=== PATIENT | female | born 1975 | race Caucasian/White ===

== ENCOUNTER → 2018-05-29 08:19 | Outpatient (CLI) | payer OTHER, SELFPAY ==
[2018-05-29 09:09] LABS: Appearance Urine UA CLEAR; Bilirubin Urine UA NEGATIVE (NEGATIVE); Color Urine UA YELLOW; Glucose Urine UA NEGATIVE (Normal); Ketones Urine UA NEGATIVE (NEGATIVE); Leukocyte Esterase Urine UA NEGATIVE (NEGATIVE); Nitrite Urine UA Negative (Negative); Occult Blood Urine UA 2+ (Negative); Protein Urine UA NEGATIVE (Negative); Specific Gravity Urine UA <=1.005 (1.000-1.035); Urobilinogen Urine UA 0.2 E.U./dL (0.2)
[2018-05-29 09:32] LABS: Bacteria Urine None Seen
[2018-05-29 09:35] LABS: Add Manual Diff / Slide Review NO; Basophils Percent Auto 0.6 % (0-2); Eosinophils Percent Auto 1.4 % (2-4); Hematocrit 41.2 % (36-46); Hemoglobin 14.3 g/dL (12.0-16.0); Lymphocytes Percent Auto 20.6 % (25-40); Mean Corpuscular HGB Conc 34.6 % (30-36); Mean Corpuscular Hemoglobin 30.7 PG (26-34); Mean Corpuscular Volume 88.7 fL (80-100); Monocytes Percent Auto 6.3 % (3-14); Neutrophils Absolute Auto 4800 /uL (3000-5900); Neutrophils Percent Auto 71.1 % (50-75); Platelet Count 257 X10^3/uL (150-400); Red Blood Cell Count 4.64 X10^6/uL (4.0-5.2); Red Cell Distribution Width 12.8 % (11.6-14.8); White Blood Cell Count 6.7 X10^3/uL (4.5-11.0)
[2018-05-29 10:56] LABS: Culture Indicated Urine Cult Not Indicated; RBC Urine 5-10/HPF (0-5/HPF); WBC Urine 5-10/HPF (0-5/HPF)
[2018-05-29 11:27] LABS: HIV 1 and 2 Antibody NEGATIVE (NEGATIVE); Hep C Virus Ab w/Reflex Quant NEGATIVE s/c (NEGATIVE); Hepatitis B Surface Antigen NEGATIVE s/c (NEGATIVE)
[2018-06-02 14:03] LABS: Varicella IgG Antibody < 135.00 Index (< 135.00)
[2018-06-02 14:10] LABS: HSV 2 IGG AB < 0.90 index (< 0.90); HSV1IGG < 0.90 index (< 0.90)
[2018-06-04 15:34] LABS: Rapid Plasma Reagin NON REACTIVE
== END ==
PROVIDERS: Family Provider Family Medicine; PCP Family Medicine; Visit Provider Specialist
DX: Z34.81 Encounter for supervision of other normal pregnancy, first trimester (principal); Z3A.01 Less than 8 weeks gestation of pregnancy
CPT/HCPCS: 36415; 80055; 81003; 81015; 86695; 86696; 86703; 86787; 86803; 86850; 86900; 86901; 87086

== ENCOUNTER → 2018-07-02 14:30 | Outpatient (CLI) | payer OTHER, SELFPAY ==
[2018-07-02 15:23] LABS: Specimen Label NATERA
== END ==
PROVIDERS: PCP Family Medicine; Visit Provider Specialist
DX: O09.529 Supervision of elderly multigravida, unspecified trimester (principal)
CPT/HCPCS: 36415

== ENCOUNTER → 2018-08-13 15:59 | Outpatient (CLI) | payer OTHER, SELFPAY ==
[2018-08-15 14:28] LABS: Alpha Fetoprotein 35.4 ng/mL (< 6.1)
[2018-08-31 09:53] LABS: AFP, Serum 34.6 ng/mL; Calc Gestational Age 18; Est Date Determined by US; Maternal Weight 180 lbs; Number of Fetuses 1; Prev Pregnancies Down Syndrome NOT GIVEN
== END ==
PROVIDERS: Family Provider Family Medicine; PCP Family Medicine; Visit Provider Specialist
DX: Z34.92 Encounter for supervision of normal pregnancy, unspecified, second trimester (principal); R39.9 Unspecified symptoms and signs involving the genitourinary system
CPT/HCPCS: 36415; 82105; 87086

== ENCOUNTER → 2018-09-09 14:15 | Outpatient (CLI) | payer OTHER, SELFPAY | PROVIDERS: Family Provider Family Medicine; PCP Family Medicine; Visit Provider Specialist | DX: R31.9 Hematuria, unspecified (principal) | CPT/HCPCS: 87086 ==

== ENCOUNTER → 2018-10-01 08:20 | Outpatient (CLI) | payer OTHER, SELFPAY ==
[2018-10-01 09:52] LABS: Hematocrit 37.4 % (36-46); Hemoglobin 12.9 g/dL (12.0-16.0)
[2018-10-01 11:12] LABS: GTT (PREG) 1 Hour PP 50gm Dose 139 mg/dL (76-139)
== END ==
PROVIDERS: Family Provider Family Medicine; PCP Family Medicine; Visit Provider Specialist
DX: Z34.92 Encounter for supervision of normal pregnancy, unspecified, second trimester (principal)
CPT/HCPCS: 36415; 82950; 85014; 85018

== ENCOUNTER 2018-11-13 12:30 | Outpatient (RCR) | payer OTHER, SELFPAY ==
--- NOTE | 2018-09-01 15:13 | PT.OIE ---
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) (spontaneous vaginal delivery) (Resolved 06/11/16) Past Surgical History (Last Updated 06/08/18 @ 12:34 by Nadine Schofield) Anesthesia (Resolved) History of third molar tooth extraction (Resolved 1997) Provider Visit Care Team Role Provider Type Alida Davalos DO Family Provider Physician Primary Care Provider Specialty: Family Practice Address: [address] [place] [address] Email: [email or web address] Melissa Henry MD Attending Provider Physician Specialty: INDUSTRIAL GAS SERVICER Address: [address] [place] [id number] Email: [email or web address] Physical Therapy Initial Evaluation PT-OP-A Visit Information Start: 08/31/18 15:46 Freq: Status: Active Protocol: Document 09/01/18 09:01 LRN (Rec: 09/01/18 09:22 [facility] [id number]) Out-Patient Physical Therapy Visit Information Visit Information Visit Type Initial Evaluation Visit Start Time 09:02 Visit Stop Time 09:53 Total Visit Minutes 51 Visit Number 1 Number of DIRECT SUPPORT WORKER Visits 0 Evaluation Information Evaluation Date 09/01/18 PT-OP-B Current Condition Start: 08/31/18 15:46 Freq: Status: Active Protocol: Document 09/01/18 09:01 LRN (Rec: 09/01/18 09:22 LRN [id number]) Current Condition History of Current Condition Onset Date Aug 12, 2018 Current Complaints R Sciatica History of Current Condition Pt is 21 weeks . She states after taking a business trip back east, in which she wore high heels for the first time in awhile, she woke the morning of her return to an onset of R Sciatic pain that was very severe. She states gradually she has gotten better during the 3 weeks she had to wait to get into therapy. She now reports intermittent sharp pain in the low back at the sacral level that radiates intermittently into the R posterior thigh, ending just above the knee. She denies any traumatic injury to her back or LE's. Prior Treatments and Tests No Treatment Goals Patient/Caregiver Goals Wants to be able to function without pain. Walk with friends and play with son at park. Don't want be put on bedrest. Would like to know what exercises she can do and what is safe to do. Prior Functional Status Baseline Function- ADL's Independent Current Functional Impairments (Reported) Functional Limitations- Work/School Sit too long, feels cramping in the area. Functional Limitations- Recreation/ Cut down on walking. Not Hobbies swimming and yoga. 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 PT-OP-C Subjective Start: 08/31/18 15:46 Freq: Status: Active Protocol: Document 09/01/18 09:01 LRN (Rec: 09/01/18 11:11 LRN [id number]) Patient Questionnaires Oswestry Low Back Index Oswestry Score 20 Oswestry Impairment 20 to 39% Impaired (Score 20- 39) OP-PT Pain Assessment Pain Assessment Grid Paper Pain Assessment Grid Completed Yes Location R LE Pain Location Details Posterior thigh, upper lateral hip Intensity 7 Scale Used Numeric (1 - 10) Description Aching Sharp Frequency Intermittent Low Back Pain Location Details Across Low back at sacral level Intensity 4 Scale Used Numeric (1 - 10) Description Aching Sharp Frequency Intermittent Radiating Location R posterior thigh to knee PT-OP-F Manual Assessment Start: 08/31/18 15:46 Freq: Status: Active Protocol: Document 09/01/18 09:01 LRN (Rec: 09/01/18 11:11 LRN [id number]) Manual Assessments Soft Tissue Assessment Soft Tissue Mobility Assessment Symmetrical in low back and hips. L3-L5 R. Paraspinal tightness. PT-OP-H Neuro Start: 08/31/18 15:46 Freq: Status: Active Protocol: Document 09/01/18 09:01 LRN (Rec: 11/20/18 11:11 LRN [id number]) Sensation Evaluation Gross Sensation Gross Sensation WNL Comments Summary Comments Normal Deep Tendon Reflex & Clonus Assessment Deep Tendon Reflex Bilateral Achilles Deep Tendon Reflex 3+ Normal But Brisk Bilateral Patellar Deep Tendon Reflex 3+ Normal But Brisk PT-OP-J Posture/Palpation/Skin Start: 08/31/18 15:46 Freq: Status: Active Protocol: Document 09/01/18 09:01 LRN (Rec: 09/01/18 11:11 LRN [id number]) Posture Evaluation Comments Posture Comments Standing: Mild forward head, R shoulder is low, Mild C- Curve of Thoracic & Upper Lumbar spine with apex on left , Mild dowager hump, increased Lordosis and anterior tilt of pelvis. Umbilicus shifted Right. PT-OP-K Range of Motion Start: 08/31/18 15:46 Freq: Status: Active Protocol: Document 09/01/18 09:01 LRN (Rec: 09/01/18 11:11 LRN [id number]) Lumbar Spine Range of Motion Lumbar Spine Active Degrees Flexion 100 Extension 25 Lateral Flexion Left 14 Lateral Flexion Right 14 Comments WNL, No pain. Hip Goniometric Range of Motion Hip Measured in Degrees Right Passive Internal Rotation 10 External Rotation 35 Left Passive Internal Rotation 25 External Rotation 42 PT-OP-M Strength Start: 08/31/18 15:46 Freq: Status: Active Protocol: Document 09/01/18 09:01 LRN (Rec: 09/01/18 11:11 LRN [id number]) Trunk Strength Trunk Manual Muscle Testing Core Stabilization Pt not able to maintain core stability with MMT of hip flexors; therefore graded 3-/5 . Hip Strength Hip Manual Muscle Testing Right Comments WNL Left Comments WNL PT-OP-Q Treatments Start: 08/31/18 15:46 Freq: Status: Active Protocol: Document 09/01/18 09:01 LRN (Rec: 09/01/18 11:15 LRN [id number]) Therapeutic Exercises Supine Exercises Fig 4 Supine Exercise Name Hip ER Stretch Side right Comments Cuing for pt to gently stretch due to advanced stage. Piriformis Supine Exercise Name Piriformis Stretch Side right Comments Cuing for pt to gently stretch due to advanced stage, supine/sit. Self-Care/Home Management Treatment Education Other Education I/S pt in recommended exer of walking and water ex appropriate for . Discussed pool therapy for instructions on water exercise . Discussed options for exercising with her 2 year old . PT-OP-T Assessment and Plan Start: 08/31/18 15:46 Freq: Status: Active Protocol: Document 09/01/18 09:01 GERARD (Rec: 09/01/18 09:22 LRN [id number]) Physical Therapy Assessment Rehab Potential Rehabilitation Potential Excellent Evaluation Complexity Number of Personal Factors/Comorbidities 1-2 Number of Body Systems Impaired 3 Clinical Presentation at Evaluation Evolving Impairments Impairments Functional Mobility Pain Posture ROM Soft Tissue Mobility Strength Other Concerns Age Related Concerns Effect of injury on work and social life. Barriers to Rehabilitation Currently mother of a 2 year old son & 21 weeks . Goals Pt lacks an aquatic therapy program Residential Goal (LTG) Pt will be safe & independent on an aquatic exercise program . LTG Duration 10/12/18 Two Impairment Intermittent R Sciatic Pain Residential Goal (LTG) Patient will be able to demonstrate proper body mechanics with taking care of & playing with her 2 year old son to prevent onset of R sciatic pain. LTG Duration 09/11/18 One Impairment Lacks self care program Residential Goal (LTG) Pt will be independent with self care ex's. LTG Duration 10/02/18 Assessment Summary Assessment Pt presents today without complaints of pain, but pain that is reproduced with R hip extension and IR ex's. Her R sciatica appears to be elicited due to poor core control with use of LE's, and she demonstrates decreased R hip IR/ER mobility. She has postural changes of increased lordosis and anterior tilt of the pelvis, and a shift of her trunk fascia to the right, that is not seen typically ( typically shift is to the left ). She does have a slight C- curve of her lower thoracic spine that may be contributing to the onset of her R sciatic pain. Overall her LE strength is normal. The pt will benefit from skilled physical therapy for body mechanics and posture training , placement on a HEP of core and L hip ROM/strengthening ex 's and education in an aquatic exercise program for independent exercise as she progresses in her . At this time there is not a need for an SI belt, but as the progresses this may be something that could help manage her Sciatic pain if it continues to persist. Physical Therapy Plan Frequency and Duration Frequency of Treatment 2x/Week Plan of Care Start Date 09/01/18 Plan of Care End Date 10/12/18 Therapeutic Interventions Therapeutic Interventions Aquatic Therapy Home Exercise Program Manual Therapy Neuromuscular Re-education Self-Care/Home Management Soft Tissue Mobilization Taping Therapeutic Exercises Modalities Cold Pack/Ice Massage Other Therapeutic Interventions Possible need of an SI Belt in the future as she progresses in her . Next Visit Focus/Plan Next Note Type Treatment Note Next Visit Plan Body mechanics training; discussion of SI Belt if needed; HEP of R hip ER/IR stretch, L hip strengthening, core stabilization with use of LE's, home management of pain with cryotherapy. Set pt up with aquatic therapy when scheduling permits.
--- NOTE | 2018-09-01 15:13 | PT.OPPOC ---
Current Diagnoses Postural lordosis, lumbar region (09/01/18) Sciatica, right side (09/01/18) 19 weeks gestation of (09/01/18) Provider Visit Care Team Role Provider Type Alida Davalos DO Family Provider Physician Primary Care Provider Specialty: Family Practice Address: [address] [place] [address], [id number] Email: [email or web address] Melissa Henry MD Attending Provider Physician Specialty: PEANUT BLANCHER Address: [address] [place] [address], [id number] Email: [email or web address] Plan Of Care PT-OP-T Assessment and Plan Start: 08/31/18 15:46 Freq: Status: Active Protocol: Document 09/01/18 09:01 LRN (Rec: 09/01/18 09:22 LRN [id number]) Physical Therapy Assessment Rehab Potential Rehabilitation Potential Excellent Evaluation Complexity Number of Personal Factors/Comorbidities 1-2 Number of Body Systems Impaired 3 Clinical Presentation at Evaluation Evolving Impairments Impairments Functional Mobility Pain Posture ROM Soft Tissue Mobility Strength Other Concerns Age Related Concerns Effect of injury on work and social life. Barriers to Rehabilitation Currently mother of a 2 year old son & 21 weeks . Goals Pt lacks an aquatic therapy program Jewel Grinder Goal (LTG) Pt will be safe & independent on an aquatic exercise program . LTG Duration 10/12/18 Two Impairment Intermittent R Sciatic Pain Correction Goal (LTG) Patient will be able to demonstrate proper body mechanics with taking care of & playing with her 2 year old son to prevent onset of R sciatic pain. LTG Duration 09/11/18 One Impairment Lacks self care program Jewel Grinder Goal (LTG) Pt will be independent with self care ex's. LTG Duration 10/02/18 Assessment Summary Assessment Pt presents today without complaints of pain, but pain that is reproduced with R hip extension and IR ex's. Her R sciatica appears to be elicited due to poor core control with use of LE's, and she demonstrates decreased R hip IR/ER mobility. She has postural changes of increased lordosis and anterior tilt of the pelvis, and a shift of her trunk fascia to the right, that is not seen typically ( typically shift is to the left ). She does have a slight C- curve of her lower thoracic spine that may be contributing to the onset of her R sciatic pain. Overall her LE strength is normal. The pt will benefit from skilled physical therapy for body mechanics and posture training , placement on a HEP of core and L hip ROM/strengthening ex 's and education in an aquatic exercise program for independent exercise as she progresses in her . At this time there is not a need for an SI belt, but as the progresses this may be something that could help manage her Sciatic pain if it continues to persist. Physical Therapy Plan Frequency and Duration Frequency of Treatment 2x/Week Plan of Care Start Date 09/01/18 Plan of Care End Date 10/12/18 Therapeutic Interventions Therapeutic Interventions Aquatic Therapy Home Exercise Program Manual Therapy Neuromuscular Re-education Self-Care/Home Management Soft Tissue Mobilization Taping Therapeutic Exercises Modalities Cold Pack/Ice Massage Other Therapeutic Interventions Possible need of an SI Belt in the future as she progresses in her . Next Visit Focus/Plan Next Note Type Treatment Note Next Visit Plan Body mechanics training; discussion of SI Belt if needed; HEP of R hip ER/IR stretch, L hip strengthening, core stabilization with use of LE's, home management of pain with cryotherapy. Set pt up with aquatic therapy when scheduling permits. Plan of Care Dates Plan of Care Start Date 09/01/18 Plan of Care End Date 10/12/18 Please Sign and Return: I have reviewed this Plan of Care and certify that the skilled therapy services above are required to meet the patient?s needs. Physician Signature Date Printed Name and Credentials Clinical Instructor Signature Printed Name and Credentials
--- NOTE | 2018-09-11 17:11 | PT.OTN ---
Current Diagnoses Sciatica, right side (09/11/18) 19 weeks gestation of (09/11/18) Physical Therapy Treatment Note PT-OP-A Visit Information Start: 08/31/18 15:46 Freq: Status: Active Protocol: Document 09/11/18 12:30 SAK (Rec: 09/11/18 17:10 SAK [id number]) Out-Patient Physical Therapy Visit Information Visit Information Visit Type Aquatic Treatment Note Visit Start Time 12:30 Visit Stop Time 13:15 Total Visit Minutes 45 Visit Number 2 Number of CONTROL ENGINEER Visits 0 PT-OP-B Current Condition Start: 08/31/18 15:46 Freq: Status: Active Protocol: Document 09/01/18 09:01 LRN (Rec: 09/01/18 09:22 LRN [id number]) Current Condition History of Current Condition Onset Date Aug 12, 2018 Current Complaints R Sciatica History of Current Condition Pt is 21 weeks . She states after taking a business trip back east, in which she wore high heels for the first time in awhile, she woke the morning of her return to an onset of R Sciatic pain that was very severe. She states gradually she has gotten better during the 3 weeks she had to wait to get into therapy. She now reports intermittent sharp pain in the low back at the sacral level that radiates intermittently into the R posterior thigh, ending just above the knee. She denies any traumatic injury to her back or LE's. Prior Treatments and Tests No Treatment Goals Patient/Caregiver Goals Wants to be able to function without pain. Walk with friends and play with son at park. Don't want be put on bedrest. Would like to know what exercises she can do and what is safe to do. Prior Functional Status Baseline Function- ADL's Independent Current Functional Impairments (Reported) Functional Limitations- Work/School Sit too long, feels cramping in the area. Functional Limitations- Recreation/ Cut down on walking. Not Hobbies swimming and yoga. 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 PT-OP-F Manual Assessment Start: 08/31/18 15:46 Freq: Status: Active Protocol: Document 09/01/18 09:01 LRN (Rec: 09/01/18 11:11 LRN [id number]) Manual Assessments Soft Tissue Assessment Soft Tissue Mobility Assessment Symmetrical in low back and hips. L3-L5 R. Paraspinal tightness. PT-OP-H Neuro Start: 08/31/18 15:46 Freq: Status: Active Protocol: Document 09/01/18 09:01 LRN (Rec: 09/01/18 11:11 LRN [id number]) Sensation Evaluation Gross Sensation Gross Sensation WNL Comments Summary Comments Normal Deep Tendon Reflex & Clonus Assessment Deep Tendon Reflex Bilateral Achilles Deep Tendon Reflex 3+ Normal But Brisk Bilateral Patellar Deep Tendon Reflex 3+ Normal But Brisk PT-OP-J Posture/Palpation/Skin Start: 08/31/18 15:46 Freq: Status: Active Protocol: Document 09/01/18 09:01 LRN (Rec: 09/01/18 11:11 LRN [id number]) Posture Evaluation Comments Posture Comments Standing: Mild forward head, R shoulder is low, Mild C- Curve of Thoracic & Upper Lumbar spine with apex on left , Mild dowager hump, increased Lordosis and anterior tilt of pelvis. Umbilicus shifted Right. PT-OP-K Range of Motion Start: 08/31/18 15:46 Freq: Status: Active Protocol: Document 09/01/18 09:01 LRN (Rec: 09/01/18 11:11 LRN [id number]) Lumbar Spine Range of Motion Lumbar Spine Active Degrees Flexion 100 Extension 25 Lateral Flexion Left 14 Lateral Flexion Right 14 Comments WNL, No pain. Hip Goniometric Range of Motion Hip Measured in Degrees Right Passive Internal Rotation 10 External Rotation 35 Left Passive Internal Rotation 25 External Rotation 42 PT-OP-M Strength Start: 08/31/18 15:46 Freq: Status: Active Protocol: Document 09/01/18 09:01 LRN (Rec: 09/01/18 11:11 LRN [id number]) Trunk Strength Trunk Manual Muscle Testing Core Stabilization Pt not able to maintain core stability with MMT of hip flexors; therefore graded 3-/5 . Hip Strength Hip Manual Muscle Testing Right Comments WNL Left Comments WNL PT-OP-Q Treatments Start: 08/31/18 15:46 Freq: Status: Active Protocol: Document 09/01/18 09:01 LRN (Rec: 09/01/18 11:15 LRN [id number]) Therapeutic Exercises Supine Exercises Fig 4 Supine Exercise Name Hip ER Stretch Side right Comments Cuing for pt to gently stretch due to advanced stage. Piriformis Supine Exercise Name Piriformis Stretch Side right Comments Cuing for pt to gently stretch due to advanced stage, supine/sit. Self-Care/Home Management Treatment Education Other Education I/S pt in recommended exer of walking and water ex appropriate for . Discussed pool therapy for instructions on water exercise . Discussed options for exercising with her 2 year old . PT-OP-S Aquatic Treatment Start: 08/31/18 15:46 Freq: Status: Active Protocol: Document 09/11/18 12:30 SAK (Rec: 09/11/18 17:10 SAK [id number]) Aquatics Treatment Pool Entry/Exit Pool Entry/Exit Method Stairs Assistance Standby Assistance Water Walking fwd,bck,side, december, december Water Level Chest Level Comments verbal and manual cues for postural alignment and core stab Lower Extremity Exercises Leg circles Body Position Standing Water Level Chest Level Reps/Duration 10x ea CC, CCW Lower Extremity Stretches DKTC, SKTC Water Level [place] Equipment pool wall Reps/Duration 2x ea Comments with deep breathing Upper Extremity Exercises shld flex/ext Body Position Standing Water Level Chest Level Reps/Duration 10 edy, 10 unil Comments emphasis on core stab sh hor ab/ad Body Position Standing Water Level Chest Level Reps/Duration 10 edy, 10 unil Comments emphasis on core stab [place] Activities [place] Activities Bicycle Bicycle Backwards Cross Country Running Other Activities Deep water DLS with small barbells Comments cues for postural alignment and core stab PT-OP-T Assessment and Plan Start: 08/31/18 15:46 Freq: Status: Active Protocol: Document 09/11/18 12:30 SAK (Rec: 09/11/18 17:10 SAK [id number]) Physical Therapy Assessment Goals Pt lacks an aquatic therapy program Mcc Goal (LTG) Pt will be safe & independent on an aquatic exercise program . LTG Duration 10/12/18 Two Impairment Intermittent R Sciatic Pain Shot Peen Operator Goal (LTG) Patient will be able to demonstrate proper body mechanics with taking care of & playing with her 2 year old son to prevent onset of R sciatic pain. LTG Duration 09/11/18 One Impairment Lacks self care program Shot Peen Operator Goal (LTG) Pt will be independent with self care ex's. LTG Duration 10/02/18 Assessment Summary Assessment Demonstrated good understanding of aquatic exercises, needed mod cues for postural alignment and core stab with all. Reported decreased pain in water and no increased pain with aquatic exercises. Feel she will benefit highly from aquatic PT . Physical Therapy Plan Frequency and Duration Frequency of Treatment 2x/Week Plan of Care Start Date 09/01/18 Plan of Care End Date 10/12/18 Therapeutic Interventions Therapeutic Interventions Aquatic Therapy Home Exercise Program Manual Therapy Neuromuscular Re-education Self-Care/Home Management Soft Tissue Mobilization Taping Therapeutic Exercises Modalities Cold Pack/Ice Massage Other Therapeutic Interventions Possible need of an SI Belt in the future as she progresses in her . Next Visit Focus/Plan Next Note Type Treatment Note Next Visit Plan Body mechanics training; discussion of SI Belt if needed; HEP of R hip ER/IR stretch, L hip strengthening, core stabilization with use of LE's, home management of pain with cryotherapy. Progress aquatic therapy as tolerated next session.
--- NOTE | 2018-09-18 17:20 | PT.OTN ---
Current Diagnoses Sciatica, right side (09/18/18) 19 weeks gestation of (09/18/18) Physical Therapy Treatment Note PT-OP-A Visit Information Start: 08/31/18 15:46 Freq: Status: Active Protocol: Document 09/18/18 17:12 SAK (Rec: 09/18/18 17:20 [facility] [id number]) Out-Patient Physical Therapy Visit Information Visit Information Visit Type Aquatic Treatment Note Visit Start Time 12:30 Visit Stop Time 13:15 Total Visit Minutes 45 Visit Number 3 Number of RADIUS GRINDER Visits 0 PT-OP-B Current Condition Start: 08/31/18 15:46 Freq: Status: Active Protocol: Document 09/01/18 09:01 LRN (Rec: 09/01/18 09:22 LRN [id number]) Current Condition History of Current Condition Onset Date Aug 12, 2018 Current Complaints R Sciatica History of Current Condition Pt is 21 weeks . She states after taking a business trip back east, in which she wore high heels for the first time in awhile, she woke the morning of her return to an onset of R Sciatic pain that was very severe. She states gradually she has gotten better during the 3 weeks she had to wait to get into therapy. She now reports intermittent sharp pain in the low back at the sacral level that radiates intermittently into the R posterior thigh, ending just above the knee. She denies any traumatic injury to her back or LE's. Prior Treatments and Tests No Treatment Goals Patient/Caregiver Goals Wants to be able to function without pain. Walk with friends and play with son at park. Don't want be put on bedrest. Would like to know what exercises she can do and what is safe to do. Prior Functional Status Baseline Function- ADL's Independent Current Functional Impairments (Reported) Functional Limitations- Work/School Sit too long, feels cramping in the area. Functional Limitations- Recreation/ Cut down on walking. Not Hobbies swimming and yoga. 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 PT-OP-C Subjective Start: 08/31/18 15:46 Freq: Status: Active Protocol: Document 09/18/18 17:12 [facility] (Rec: 09/18/18 17:20 SAK [id number]) OP-PT Subjective Patient Comments Patient Comments Patient reports she has come to the pool 1x since last seen . [place] good after first aquatic therapy session; states less sciatic pain. Had to bring her son to PT session today. PT-OP-F Manual Assessment Start: 08/31/18 15:46 Freq: Status: Active Protocol: Document 09/01/18 09:01 LRN (Rec: 09/01/18 11:11 LRN [id number]) Manual Assessments Soft Tissue Assessment Soft Tissue Mobility Assessment Symmetrical in low back and hips. L3-L5 R. Paraspinal tightness. PT-OP-H Neuro Start: 08/31/18 15:46 Freq: Status: Active Protocol: Document 09/01/18 09:01 LRN (Rec: 09/01/18 11:11 LRN [id number]) Sensation Evaluation Gross Sensation Gross Sensation WNL Comments Summary Comments Normal Deep Tendon Reflex & Clonus Assessment Deep Tendon Reflex Bilateral Achilles Deep Tendon Reflex 3+ Normal But Brisk Bilateral Patellar Deep Tendon Reflex 3+ Normal But Brisk PT-OP-J Posture/Palpation/Skin Start: 08/31/18 15:46 Freq: Status: Active Protocol: Document 09/01/18 09:01 LRN (Rec: 09/01/18 11:11 LRN [id number]) Posture Evaluation Comments Posture Comments Standing: Mild forward head, R shoulder is low, Mild C- Curve of Thoracic & Upper Lumbar spine with apex on left , Mild dowager hump, increased Lordosis and anterior tilt of pelvis. Umbilicus shifted Right. PT-OP-K Range of Motion Start: 08/31/18 15:46 Freq: Status: Active Protocol: Document 09/01/18 09:01 LRN (Rec: 09/01/18 11:11 LRN [id number]) Lumbar Spine Range of Motion Lumbar Spine Active Degrees Flexion 100 Extension 25 Lateral Flexion Left 14 Lateral Flexion Right 14 Comments WNL, No pain. Hip Goniometric Range of Motion Hip Measured in Degrees Right Passive Internal Rotation 10 External Rotation 35 Left Passive Internal Rotation 25 External Rotation 42 PT-OP-M Strength Start: 08/31/18 15:46 Freq: Status: Active Protocol: Document 09/01/18 09:01 LRN (Rec: 09/01/18 11:11 LRN [id number]) Trunk Strength Trunk Manual Muscle Testing Core Stabilization Pt not able to maintain core stability with MMT of hip flexors; therefore graded 3-/5 . Hip Strength Hip Manual Muscle Testing Right Comments WNL Left Comments WNL PT-OP-Q Treatments Start: 08/31/18 15:46 Freq: Status: Active Protocol: Document 09/01/18 09:01 LRN (Rec: 09/01/18 11:15 LRN [id number]) Therapeutic Exercises Supine Exercises Fig 4 Supine Exercise Name Hip ER Stretch Side right Comments Cuing for pt to gently stretch due to advanced stage. Piriformis Supine Exercise Name Piriformis Stretch Side right Comments Cuing for pt to gently stretch due to advanced stage, supine/sit. Self-Care/Home Management Treatment Education Other Education I/S pt in recommended exer of walking and water ex appropriate for . Discussed pool therapy for instructions on water exercise . Discussed options for exercising with her 2 year old . PT-OP-S Aquatic Treatment Start: 08/31/18 15:46 Freq: Status: Active Protocol: Document 09/18/18 17:12 SAK (Rec: 09/18/18 17:20 SAK [id number]) Aquatics Treatment Pool Entry/Exit Pool Entry/Exit Method Stairs Assistance Standby Assistance Water Walking fwd,bck,side, december, soldier december Water Level Chest Level Comments verbal and manual cues for postural alignment and core stab; carrying son Lower Extremity Exercises squats Reps/Duration 10x3 Comments cues for postural alignment, core stab; with and without son hip flex/ext Body Position Standing Water Level Chest Level Reps/Duration 10x Leg circles Body Position Standing Water Level Chest Level Reps/Duration 10x ea CC, CCW Lower Extremity Stretches IT band Body Position Standing Water Level Chest Level Equipment Small Noodle Reps/Duration 2x HS Body Position Standing Water Level Chest Level Equipment Small Noodle Reps/Duration 2x DKTC, SKTC Details SKTC only Water Level Chest Level Reps/Duration 2x ea Comments with deep breathing Upper Extremity Exercises shld flex/ext Body Position Standing Water Level Chest Level Reps/Duration 10 edy, 10 unil Comments emphasis on core stab sh hor ab/ad Body Position Standing Water Level Chest Level Reps/Duration 10 edy, 10 unil Comments emphasis on core stab [place] Activities [place] Activities Bicycle Comments cues for postural alignment and core stab. PT-OP-T Assessment and Plan Start: 08/31/18 15:46 Freq: Status: Active Protocol: Document 09/18/18 12:30 [facility] (Rec: 09/18/18 17:20 [facility] [id number]) Physical Therapy Assessment Goals Pt lacks an aquatic therapy program Air Conditioning Equipment Mechanic Goal (LTG) Pt will be safe & independent on an aquatic exercise program . LTG Duration 10/12/18 Two Impairment Intermittent R Sciatic Pain [facility] Goal (LTG) Patient will be able to demonstrate proper body mechanics with taking care of & playing with her 2 year old son to prevent onset of R sciatic pain. LTG Duration 09/11/18 One Impairment Lacks self care program [facility] Goal (LTG) Pt will be independent with self care ex's. LTG Duration 10/02/18 Assessment Summary Assessment Patient education throughout PT session today with emphasis on postural alignment and core stab while holding, moving, playing with son during session; patient demonstrated good understanding. Patient reported HS stretch in water felt very helpful. Physical Therapy Plan Frequency and Duration Frequency of Treatment 2x/Week Duration of Treatment 6 wks Plan of Care Start Date 09/01/18 Plan of Care End Date 10/12/18 Therapeutic Interventions Therapeutic Interventions Aquatic Therapy Home Exercise Program Manual Therapy Neuromuscular Re-education Self-Care/Home Management Soft Tissue Mobilization Taping Therapeutic Exercises Modalities Cold Pack/Ice Massage Other Therapeutic Interventions Possible need of an SI Belt in the future as she progresses in her . Next Visit Focus/Plan Next Note Type Treatment Note Next Visit Plan Continue to progress aquatic therapy as tolerated emphasis on postural alignment and core stabilization, gentle flexibility.
--- NOTE | 2018-09-25 15:11 | PT.OTN ---
Current Diagnoses Sciatica, right side (09/25/18) 19 weeks gestation of (09/25/18) Physical Therapy Treatment Note PT-OP-A Visit Information Start: 08/31/18 15:46 Freq: Status: Active Protocol: Document 09/25/18 12:30 LJ (Rec: 09/25/18 15:11 LJ [id number]) Out-Patient Physical Therapy Visit Information Visit Information Visit Type Aquatic Treatment Note Visit Start Time 12:30 Visit Stop Time 13:15 Total Visit Minutes 45 Visit Number 4 Number of WEB ANALYST Visits 1 PT-OP-B Current Condition Start: 08/31/18 15:46 Freq: Status: Active Protocol: Document 09/01/18 09:01 LRN (Rec: 09/01/18 09:22 LRN [id number]) Current Condition History of Current Condition Onset Date Aug 12, 2018 Current Complaints R Sciatica History of Current Condition Pt is 21 weeks . She states after taking a business trip back east, in which she wore high heels for the first time in awhile, she woke the morning of her return to an onset of R Sciatic pain that was very severe. She states gradually she has gotten better during the 3 weeks she had to wait to get into therapy. She now reports intermittent sharp pain in the low back at the sacral level that radiates intermittently into the R posterior thigh, ending just above the knee. She denies any traumatic injury to her back or LE's. Prior Treatments and Tests No Treatment Goals Patient/Caregiver Goals Wants to be able to function without pain. Walk with friends and play with son at park. Don't want be put on bedrest. Would like to know what exercises she can do and what is safe to do. Prior Functional Status Baseline Function- ADL's Independent Current Functional Impairments (Reported) Functional Limitations- Work/School Sit too long, feels cramping in the area. Functional Limitations- Recreation/ Cut down on walking. Not Hobbies swimming and yoga. 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 PT-OP-C Subjective Start: 08/31/18 15:46 Freq: Status: Active Protocol: Document 09/25/18 12:30 LJ (Rec: 09/25/18 15:11 LJ [id number]) OP-PT Subjective Patient Comments Patient Comments Pt reports sciatic episode resolved itself and is no longer painful. States pain is improving. Concerned that baby is dropping too soon in . PT-OP-F Manual Assessment Start: 08/31/18 15:46 Freq: Status: Active Protocol: Document 09/01/18 09:01 LRN (Rec: 09/01/18 11:11 LRN [id number]) Manual Assessments Soft Tissue Assessment Soft Tissue Mobility Assessment Symmetrical in low back and hips. L3-L5 R. Paraspinal tightness. PT-OP-H Neuro Start: 08/31/18 15:46 Freq: Status: Active Protocol: Document 09/01/18 09:01 LRN (Rec: 09/01/18 11:11 LRN [id number]) Sensation Evaluation Gross Sensation Gross Sensation WNL Comments Summary Comments Normal Deep Tendon Reflex & Clonus Assessment Deep Tendon Reflex Bilateral Achilles Deep Tendon Reflex 3+ Normal But Brisk Bilateral Patellar Deep Tendon Reflex 3+ Normal But Brisk PT-OP-J Posture/Palpation/Skin Start: 08/31/18 15:46 Freq: Status: Active Protocol: Document 09/01/18 09:01 LRN (Rec: 09/01/18 11:11 LRN [id number]) Posture Evaluation Comments Posture Comments Standing: Mild forward head, R shoulder is low, Mild C- Curve of Thoracic & Upper Lumbar spine with apex on left , Mild dowager hump, increased Lordosis and anterior tilt of pelvis. Umbilicus shifted Right. PT-OP-K Range of Motion Start: 08/31/18 15:46 Freq: Status: Active Protocol: Document 09/01/18 09:01 LRN (Rec: 09/01/18 11:11 LRN [id number]) Lumbar Spine Range of Motion Lumbar Spine Active Degrees Flexion 100 Extension 25 Lateral Flexion Left 14 Lateral Flexion Right 14 Comments WNL, No pain. Hip Goniometric Range of Motion Hip Measured in Degrees Right Passive Internal Rotation 10 External Rotation 35 Left Passive Internal Rotation 25 External Rotation 42 PT-OP-M Strength Start: 08/31/18 15:46 Freq: Status: Active Protocol: Document 09/01/18 09:01 LRN (Rec: 09/01/18 11:11 LRN [id number]) Trunk Strength Trunk Manual Muscle Testing Core Stabilization Pt not able to maintain core stability with MMT of hip flexors; therefore graded 3-/5 . Hip Strength Hip Manual Muscle Testing Right Comments WNL Left Comments WNL PT-OP-Q Treatments Start: 08/31/18 15:46 Freq: Status: Active Protocol: Document 09/01/18 09:01 LRN (Rec: 09/01/18 11:15 LRN [id number]) Therapeutic Exercises Supine Exercises Fig 4 Supine Exercise Name Hip ER Stretch Side right Comments Cuing for pt to gently stretch due to advanced stage. Piriformis Supine Exercise Name Piriformis Stretch Side right Comments Cuing for pt to gently stretch due to advanced stage, supine/sit. Self-Care/Home Management Treatment Education Other Education I/S pt in recommended exer of walking and water ex appropriate for . Discussed pool therapy for instructions on water exercise . Discussed options for exercising with her 2 year old . PT-OP-S Aquatic Treatment Start: 08/31/18 15:46 Freq: Status: Active Protocol: Document 09/25/18 12:30 LJ (Rec: 09/25/18 15:11 LJ [id number]) Aquatics Treatment Pool Entry/Exit Pool Entry/Exit Method Stairs Assistance Standby Assistance Water Walking fwd,bck,side, december, december Water Level Chest Level Comments verbal and manual cues for postural alignment and core stab; carrying son Lower Extremity Exercises squats Reps/Duration 10x3 Comments cues for postural alignment, core stab; with and without son; on 6 box hip flex/ext Body Position Standing Water Level Chest Level Reps/Duration 10x Lower Extremity Stretches IT band Body Position Standing Water Level Chest Level Equipment Small Noodle Reps/Duration 2x HS Body Position Standing Water Level Chest Level Equipment Small Noodle Reps/Duration 2x Upper Extremity Exercises shld flex/ext Body Position Standing Water Level Chest Level Reps/Duration 10 edy, 10 unil Comments during squat on box; emphasis on core stab sh hor ab/ad Body Position Standing Water Level Chest Level Reps/Duration 10 edy, 10 unil Comments during aquat on box; emphasis on core stab Upper Extremity Stretches fwd walking holding noodle behind bck Reps/Duration 4 laps Spinal Exercises core stab in walking forward and backwrd Reps/Duration 4 laps Comments tactile cueing Balance backward walk tandem Reps/Duration 2 laps [place] Activities [place] Activities Bicycle Bicycle Backwards [place] Running Other Activities pendulum supine lumbar twist for dymamic stretching Comments cues for postural alignment and core stab. PT-OP-T Assessment and Plan Start: 08/31/18 15:46 Freq: Status: Active Protocol: Document 09/25/18 12:30 LJ (Rec: 09/25/18 15:11 LJ [id number]) Physical Therapy Assessment Rehab Potential Rehabilitation Potential Excellent Evaluation Complexity Number of Personal Factors/Comorbidities 1-2 Number of Body Systems Impaired 3 Clinical Presentation at Evaluation Evolving Impairments Impairments Functional Mobility Pain Posture ROM Soft Tissue Mobility Strength Other Concerns Age Related Concerns Effect of injury on work and social life. Barriers to Rehabilitation Currently mother of a 2 year old son & 21 weeks . Goals Pt lacks an aquatic therapy program Fiber Worker Goal (LTG) Pt will be safe & independent on an aquatic exercise program . LTG Duration 10/12/18 Two Impairment Intermittent R Sciatic Pain Fiber Worker Goal (LTG) Patient will be able to demonstrate proper body mechanics with taking care of & playing with her 2 year old son to prevent onset of R sciatic pain. LTG Duration 09/11/18 One Impairment Lacks self care program Fiber Worker Goal (LTG) Pt will be independent with self care ex's. LTG Duration 10/02/18 Assessment Summary Assessment Pt demonstrates good posture and understanding of all exercises. Tolerated session well. Demonstrated good balance in backward walking w/ NBOS. Physical Therapy Plan Frequency and Duration Frequency of Treatment 2x/Week Duration of Treatment 6 wks Plan of Care Start Date 09/01/18 Plan of Care End Date 10/12/18 Therapeutic Interventions Therapeutic Interventions Aquatic Therapy Home Exercise Program Manual Therapy Neuromuscular Re-education Self-Care/Home Management Soft Tissue Mobilization Taping Therapeutic Exercises Modalities Cold Pack/Ice Massage Other Therapeutic Interventions Possible need of an SI Belt in the future as she progresses in her . Next Visit Focus/Plan Next Visit Plan Continue to progress aquatic therapy as tolerated emphasis on postural alignment and core stabilization, gentle flexibility. Increase resistance and intensity as tolerated.
--- NOTE | 2018-10-09 15:20 | PT.OTN ---
Current Diagnoses Sciatica, right side (10/09/18) 19 weeks gestation of (10/09/18) Physical Therapy Treatment Note PT-OP-A Visit Information Start: 08/31/18 15:46 Freq: Status: Active Protocol: Document 10/09/18 11:00 LJ (Rec: 10/09/18 15:19 LJ [email or web address]) Out-Patient Physical Therapy Visit Information Visit Information Visit Type Aquatic Treatment Note Visit Start Time 11:00 Visit Stop Time 11:45 Total Visit Minutes 45 Visit Number 5 Number of CAKE FORMER Visits 2 PT-OP-B Current Condition Start: 08/31/18 15:46 Freq: Status: Active Protocol: Document 09/01/18 09:01 LRN (Rec: 09/01/18 09:22 LRN [id number]) Current Condition History of Current Condition Onset Date Aug 12, 2018 Current Complaints R Sciatica History of Current Condition Pt is 21 weeks . She states after taking a business trip back east, in which she wore high heels for the first time in awhile, she woke the morning of her return to an onset of R Sciatic pain that was very severe. She states gradually she has gotten better during the 3 weeks she had to wait to get into therapy. She now reports intermittent sharp pain in the low back at the sacral level that radiates intermittently into the R posterior thigh, ending just above the knee. She denies any traumatic injury to her back or LE's. Prior Treatments and Tests No Treatment Goals Patient/Caregiver Goals Wants to be able to function without pain. Walk with friends and play with son at park. Don't want be put on bedrest. Would like to know what exercises she can do and what is safe to do. Prior Functional Status Baseline Function- ADL's Independent Current Functional Impairments (Reported) Functional Limitations- Work/School Sit too long, feels cramping in the area. Functional Limitations- Recreation/ Cut down on walking. Not Hobbies swimming and yoga. 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 PT-OP-C Subjective Start: 08/31/18 15:46 Freq: Status: Active Protocol: Document 10/09/18 11:00 LJ (Rec: 10/09/18 15:19 LJ [email or web address]) OP-PT Subjective Patient Comments Patient Comments Pt reports pain is negligable. Occasionally flares up when carrying son for extended periods of time PT-OP-F Manual Assessment Start: 08/31/18 15:46 Freq: Status: Active Protocol: Document 09/01/18 09:01 LRN (Rec: 09/01/18 11:11 LRN [id number]) Manual Assessments Soft Tissue Assessment Soft Tissue Mobility Assessment Symmetrical in low back and hips. L3-L5 R. Paraspinal tightness. PT-OP-H Neuro Start: 08/31/18 15:46 Freq: Status: Active Protocol: Document 09/01/18 09:01 LRN (Rec: 09/01/18 11:11 LRN [id number]) Sensation Evaluation Gross Sensation Gross Sensation WNL Comments Summary Comments Normal Deep Tendon Reflex & Clonus Assessment Deep Tendon Reflex Bilateral Achilles Deep Tendon Reflex 3+ Normal But Brisk Bilateral Patellar Deep Tendon Reflex 3+ Normal But Brisk PT-OP-J Posture/Palpation/Skin Start: 08/31/18 15:46 Freq: Status: Active Protocol: Document 09/01/18 09:01 LRN (Rec: 09/01/18 11:11 LRN [id number]) Posture Evaluation Comments Posture Comments Standing: Mild forward head, R shoulder is low, Mild C- Curve of Thoracic & Upper Lumbar spine with apex on left , Mild dowager hump, increased Lordosis and anterior tilt of pelvis. Umbilicus shifted Right. PT-OP-K Range of Motion Start: 08/31/18 15:46 Freq: Status: Active Protocol: Document 09/01/18 09:01 LRN (Rec: 09/01/18 11:11 LRN [id number]) Lumbar Spine Range of Motion Lumbar Spine Active Degrees Flexion 100 Extension 25 Lateral Flexion Left 14 Lateral Flexion Right 14 Comments WNL, No pain. Hip Goniometric Range of Motion Hip Measured in Degrees Right Passive Internal Rotation 10 External Rotation 35 Left Passive Internal Rotation 25 External Rotation 42 PT-OP-M Strength Start: 08/31/18 15:46 Freq: Status: Active Protocol: Document 09/01/18 09:01 LRN (Rec: 09/01/18 11:11 LRN [id number]) Trunk Strength Trunk Manual Muscle Testing Core Stabilization Pt not able to maintain core stability with MMT of hip flexors; therefore graded 3-/5 . Hip Strength Hip Manual Muscle Testing Right Comments WNL Left Comments WNL PT-OP-Q Treatments Start: 08/31/18 15:46 Freq: Status: Active Protocol: Document 09/01/18 09:01 LRN (Rec: 09/01/18 11:15 LRN [id number]) Therapeutic Exercises Supine Exercises Fig 4 Supine Exercise Name Hip ER Stretch Side right Comments Cuing for pt to gently stretch due to advanced stage. Piriformis Supine Exercise Name Piriformis Stretch Side right Comments Cuing for pt to gently stretch due to advanced stage, supine/sit. Self-Care/Home Management Treatment Education Other Education I/S pt in recommended exer of walking and water ex appropriate for . Discussed pool therapy for instructions on water exercise . Discussed options for exercising with her 2 year old . PT-OP-S Aquatic Treatment Start: 08/31/18 15:46 Freq: Status: Active Protocol: Document 10/09/18 11:00 LJ (Rec: 10/09/18 15:19 LJ [email or web address]) Aquatics Treatment Pool Entry/Exit Pool Entry/Exit Method Stairs Assistance Standby Assistance Water Walking fwd,bck,side, december, december Water Level Chest Level Comments verbal and manual cues for postural alignment and core stab; carrying son Lower Extremity Exercises squats Reps/Duration 10x3 Comments cues for postural alignment, core stab; with and without son; on 6 box hip flex/ext Body Position Standing Water Level Chest Level Reps/Duration 10x Leg circles Body Position Standing Water Level Chest Level Reps/Duration 10x ea CC, CCW Lower Extremity Stretches IT band Body Position Standing Water Level Chest Level Equipment Small Noodle Reps/Duration 2x HS Body Position Standing Reps/Duration 2x Comments on wall DKTC, SKTC Water Level Chest Level Reps/Duration 2x ea Comments with deep breathing Upper Extremity Exercises shld flex/ext Body Position Standing Water Level Chest Level Reps/Duration 10 edy, 10 unil Comments during squat on box; emphasis on core stab sh hor ab/ad Body Position Standing Water Level Chest Level Reps/Duration 10 edy, 10 unil Comments during aquat on box; emphasis on core stab Upper Extremity Stretches fwd walking holding noodle behind bck Reps/Duration 2 laps Spinal Exercises core stab in walking forward and backwrd Reps/Duration 4 laps Comments tactile cueing Balance backward walk tandem Reps/Duration 2 laps [place] Activities [place] Activities Bicycle Bicycle Backwards Cross Country Running Other Activities pendulum -supine lumbar twist for - dymamic stretching -30/15 intervals x 4 min Comments cues for postural alignment and core stab. PT-OP-T Assessment and Plan Start: 08/31/18 15:46 Freq: Status: Active Protocol: Document 10/09/18 11:00 [email or web address] (Rec: 10/09/18 15:19 [email or web address]) Physical Therapy Assessment Rehab Potential Rehabilitation Potential Excellent Evaluation Complexity Number of Personal Factors/Comorbidities 1-2 Number of Body Systems Impaired 3 Clinical Presentation at Evaluation Evolving Impairments Impairments Functional Mobility Pain Posture ROM Soft Tissue Mobility Strength Other Concerns Age Related Concerns Effect of injury on work and social life. Barriers to Rehabilitation Currently mother of a 2 year old son & 21 weeks . Goals Pt lacks an aquatic therapy program Mine Inspector Goal (LTG) Pt will be safe & independent on an aquatic exercise program . LTG Duration 10/12/18 Two Impairment Intermittent R Sciatic Pain Fdc Goal (LTG) Patient will be able to demonstrate proper body mechanics with taking care of & playing with her 2 year old son to prevent onset of R sciatic pain. LTG Duration 09/11/18 One Impairment Lacks self care program Mine Inspector Goal (LTG) Pt will be independent with self care ex's. LTG Duration 10/02/18 Assessment Summary Assessment Pt demonstrates good posture and understanding of all exercises. Tolerated session well. Demonstrated good balance in backwrd walking w/ NBOS. Physical Therapy Plan Frequency and Duration Frequency of Treatment 2x/Week Duration of Treatment 6 wks Plan of Care Start Date 09/01/18 Plan of Care End Date 10/12/18 Therapeutic Interventions Therapeutic Interventions Aquatic Therapy Home Exercise Program Manual Therapy Neuromuscular Re-education Self-Care/Home Management Soft Tissue Mobilization Taping Therapeutic Exercises Modalities Cold Pack/Ice Massage Other Therapeutic Interventions Possible need of an SI Belt in the future as she progresses in her . Next Visit Focus/Plan Next Visit Plan Continue to progress aquatic therapy as tolerated emphasis on postural alignment and core stabilization, gentle flexibility. Increase resistance and intensity as tolerated.
--- NOTE | 2018-10-16 14:40 | PT.OTN ---
Current Diagnoses Sciatica, right side (10/09/18) 19 weeks gestation of (10/09/18) Physical Therapy Treatment Note PT-OP-A Visit Information Start: 08/31/18 15:46 Freq: Status: Active Protocol: Document 10/16/18 11:45 LJ (Rec: 10/16/18 14:40 LJ [email or web address]) Out-Patient Physical Therapy Visit Information Visit Information Visit Type Aquatic Treatment Note Visit Start Time 11:45 Visit Stop Time 12:30 Total Visit Minutes 45 Visit Number 6 Number of JOINT SUPERVISOR Visits 3 PT-OP-B Current Condition Start: 08/31/18 15:46 Freq: Status: Active Protocol: Document 09/01/18 09:01 LRN (Rec: 09/01/18 09:22 LRN [id number]) Current Condition History of Current Condition Onset Date Aug 12, 2018 Current Complaints R Sciatica History of Current Condition Pt is 21 weeks . She states after taking a business trip back east, in which she wore high heels for the first time in awhile, she woke the morning of her return to an onset of R Sciatic pain that was very severe. She states gradually she has gotten better during the 3 weeks she had to wait to get into therapy. She now reports intermittent sharp pain in the low back at the sacral level that radiates intermittently into the R posterior thigh, ending just above the knee. She denies any traumatic injury to her back or LE's. Prior Treatments and Tests No Treatment Goals Patient/Caregiver Goals Wants to be able to function without pain. Walk with friends and play with son at park. Don't want be put on bedrest. Would like to know what exercises she can do and what is safe to do. Prior Functional Status Baseline Function- ADL's Independent Current Functional Impairments (Reported) Functional Limitations- Work/School Sit too long, feels cramping in the area. Functional Limitations- Recreation/ Cut down on walking. Not Hobbies swimming and yoga. 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 PT-OP-C Subjective Start: 08/31/18 15:46 Freq: Status: Active Protocol: Document 10/16/18 11:45 LJ (Rec: 10/16/18 14:40 LJ [email or web address]) OP-PT Subjective Patient Comments Patient Comments Pt reports feeling pain in LLE groin area. States it feels like I overstretched something. Also reports she will be attending Dr appointments every other week and will only be doing aquatic therapy every other Friday. PT-OP-F Manual Assessment Start: 08/31/18 15:46 Freq: Status: Active Protocol: Document 09/01/18 09:01 LRN (Rec: 09/01/18 11:11 LRN [id number]) Manual Assessments Soft Tissue Assessment Soft Tissue Mobility Assessment Symmetrical in low back and hips. L3-L5 R. Paraspinal tightness. PT-OP-H Neuro Start: 08/31/18 15:46 Freq: Status: Active Protocol: Document 09/01/18 09:01 LRN (Rec: 09/01/18 11:11 LRN [id number]) Sensation Evaluation Gross Sensation Gross Sensation WNL Comments Summary Comments Normal Deep Tendon Reflex & Clonus Assessment Deep Tendon Reflex Bilateral Achilles Deep Tendon Reflex 3+ Normal But Brisk Bilateral Patellar Deep Tendon Reflex 3+ Normal But Brisk PT-OP-J Posture/Palpation/Skin Start: 08/31/18 15:46 Freq: Status: Active Protocol: Document 09/01/18 09:01 LRN (Rec: 09/01/18 11:11 LRN [id number]) Posture Evaluation Comments Posture Comments Standing: Mild forward head, R shoulder is low, Mild C- Curve of Thoracic & Upper Lumbar spine with apex on left , Mild dowager hump, increased Lordosis and anterior tilt of pelvis. Umbilicus shifted Right. PT-OP-K Range of Motion Start: 08/31/18 15:46 Freq: Status: Active Protocol: Document 09/01/18 09:01 LRN (Rec: 09/01/18 11:11 LRN [id number]) Lumbar Spine Range of Motion Lumbar Spine Active Degrees Flexion 100 Extension 25 Lateral Flexion Left 14 Lateral Flexion Right 14 Comments WNL, No pain. Hip Goniometric Range of Motion Hip Measured in Degrees Right Passive Internal Rotation 10 External Rotation 35 Left Passive Internal Rotation 25 External Rotation 42 PT-OP-M Strength Start: 08/31/18 15:46 Freq: Status: Active Protocol: Document 09/01/18 09:01 LRN (Rec: 09/01/18 11:11 LRN [id number]) Trunk Strength Trunk Manual Muscle Testing Core Stabilization Pt not able to maintain core stability with MMT of hip flexors; therefore graded 3-/5 . Hip Strength Hip Manual Muscle Testing Right Comments WNL Left Comments WNL PT-OP-Q Treatments Start: 08/31/18 15:46 Freq: Status: Active Protocol: Document 09/01/18 09:01 LRN (Rec: 09/01/18 11:15 LRN [id number]) Therapeutic Exercises Supine Exercises Fig 4 Supine Exercise Name Hip ER Stretch Side right Comments Cuing for pt to gently stretch due to advanced stage. Piriformis Supine Exercise Name Piriformis Stretch Side right Comments Cuing for pt to gently stretch due to advanced stage, supine/sit. Self-Care/Home Management Treatment Education Other Education I/S pt in recommended exer of walking and water ex appropriate for . Discussed pool therapy for instructions on water exercise . Discussed options for exercising with her 2 year old . PT-OP-S Aquatic Treatment Start: 08/31/18 15:46 Freq: Status: Active Protocol: Document 10/16/18 11:45 LJ (Rec: 10/16/18 14:40 LJ [id number]) Aquatics Treatment Pool Entry/Exit Pool Entry/Exit Method Stairs Assistance Independent Water Walking Sideways Water Level Chest Level Comments IR/ER UEs fwd,bck,side, december, soldier december Water Level Chest Level Comments verbal cues for arm swing Lower Extremity Exercises ER/IR Details 90/90 (hip knee) Body Position Standing Water Level Waist Level squats Reps/Duration 10x3 Comments cues for postural alignment, core stab; with and without son; on 6 box Leg circles Body Position Standing Water Level Chest Level Reps/Duration 10x ea CC, CCW Lower Extremity Stretches HC Details heel cord Comments at wall IT band Body Position Standing Water Level Chest Level Equipment Small Noodle Reps/Duration 2x HS Body Position Standing Reps/Duration 2x Comments on wall DKTC, SKTC Water Level Chest Level Reps/Duration 2x ea Comments with deep breathing Upper Extremity Exercises shld flex/ext Body Position Standing Water Level Chest Level Equipment UE paddles Reps/Duration 10x bilat Comments alternate and simultaneous arms sh hor ab/ad Body Position Standing Water Level Chest Level Reps/Duration 10 edy, 10 unil Upper Extremity Stretches fwd walking holding noodle behind bck Reps/Duration 2 laps Spinal Exercises core stab in walking forward and backwrd Reps/Duration 4 laps Comments tactile cueing, meeting therapist resistance Balance backward walk tandem Reps/Duration 2 laps [place] Activities [place] Activities Bicycle Cross Country Running Other Activities corner hip flex x 10 Comments cues for postural alignment and core stab. PT-OP-T Assessment and Plan Start: 08/31/18 15:46 Freq: Status: Active Protocol: Document 10/16/18 11:45 [email or web address] (Rec: 10/16/18 14:40 [email or web address] [email or web address]) Physical Therapy Assessment Rehab Potential Rehabilitation Potential Excellent Evaluation Complexity Number of Personal Factors/Comorbidities 1-2 Number of Body Systems Impaired 3 Clinical Presentation at Evaluation Evolving Impairments Impairments Functional Mobility Pain Posture ROM Soft Tissue Mobility Strength Other Concerns Age Related Concerns Effect of injury on work and social life. Barriers to Rehabilitation Currently mother of a 2 year old son & 21 weeks . Goals Pt lacks an aquatic therapy program Technical Agronomist Goal (LTG) Pt will be safe & independent on an aquatic exercise program . LTG Duration 10/12/18 Two Impairment Intermittent R Sciatic Pain Technical Agronomist Goal (LTG) Patient will be able to demonstrate proper body mechanics with taking care of & playing with her 2 year old son to prevent onset of R sciatic pain. LTG Duration 09/11/18 One Impairment Lacks self care program Prison Goal (LTG) Pt will be independent with self care ex's. LTG Duration 10/02/18 Assessment Summary Assessment Pain in groin area relieved by flexion activities, HS and ITB stretch. Requiring cues for posture and recip. gait pattern in water walking. Physical Therapy Plan Frequency and Duration Frequency of Treatment 2x/Week Duration of Treatment 6 wks Plan of Care Start Date 09/01/18 Plan of Care End Date 10/12/18 Therapeutic Interventions Therapeutic Interventions Aquatic Therapy Home Exercise Program Manual Therapy Neuromuscular Re-education Self-Care/Home Management Soft Tissue Mobilization Taping Therapeutic Exercises Modalities Cold Pack/Ice Massage Other Therapeutic Interventions Possible need of an SI Belt in the future as she progresses in her . Next Visit Focus/Plan Next Visit Plan Depending on pt reaction to today's session, consider giving pt HEP for independent pool exercise.
--- NOTE | 2018-10-29 14:46 | PT.OIE ---
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) (spontaneous vaginal delivery) (Resolved 06/11/16) Past Surgical History (Last Updated 06/08/18 @ 12:34 by Nadine Schofield) Anesthesia (Resolved) History of third molar tooth extraction (Resolved 1997) Provider Visit Care Team Role Provider Type Alida Davalos DO Family Provider Physician Primary Care Provider Specialty: Family Practice Address: [address] [place] [address] Email: [email or web address] Melissa Henry MD Attending Provider Physician Specialty: TECHNOLOGY ADMINISTRATOR Address: [address] [place] [id number] Email: [email or web address] Physical Therapy Initial Evaluation PT-OP-A Visit Information Start: 08/31/18 15:46 Freq: Status: Active Protocol: Document 10/16/18 11:45 LJ (Rec: 10/16/18 14:40 LJ [id number]) Out-Patient Physical Therapy Visit Information Visit Information Visit Type Aquatic Treatment Note Visit Start Time 11:45 Visit Stop Time 12:30 Total Visit Minutes 45 Visit Number 6 Number of ONLINE MEDIA DIRECTOR Visits 3 PT-OP-B Current Condition Start: 08/31/18 15:46 Freq: Status: Active Protocol: Document 09/01/18 09:01 LRN (Rec: 09/01/18 09:22 LRN [id number]) Current Condition History of Current Condition Onset Date Aug 12, 2018 Current Complaints R Sciatica History of Current Condition Pt is 21 weeks . She states after taking a business trip back east, in which she wore high heels for the first time in awhile, she woke the morning of her return to an onset of R Sciatic pain that was very severe. She states gradually she has gotten better during the 3 weeks she had to wait to get into therapy. She now reports intermittent sharp pain in the low back at the sacral level that radiates intermittently into the R posterior thigh, ending just above the knee. She denies any traumatic injury to her back or LE's. Prior Treatments and Tests No Treatment Goals Patient/Caregiver Goals Wants to be able to function without pain. Walk with friends and play with son at park. Don't want be put on bedrest. Would like to know what exercises she can do and what is safe to do. Prior Functional Status Baseline Function- ADL's Independent Current Functional Impairments (Reported) Functional Limitations- Work/School Sit too long, feels cramping in the area. Functional Limitations- Recreation/ Cut down on walking. Not Hobbies swimming and yoga. 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 PT-OP-C Subjective Start: 08/31/18 15:46 Freq: Status: Active Protocol: Document 10/16/18 11:45 LJ (Rec: 10/16/18 14:40 LJ [id number]) OP-PT Subjective Patient Comments Patient Comments Pt reports feeling pain in LLE groin area. States it feels like I overstretched something. Also reports she will be attending Dr appointments every other week and will only be doing aquatic therapy every other Friday. PT-OP-F Manual Assessment Start: 08/31/18 15:46 Freq: Status: Active Protocol: Document 09/01/18 09:01 LRN (Rec: 09/01/18 11:11 LRN [id number]) Manual Assessments Soft Tissue Assessment Soft Tissue Mobility Assessment Symmetrical in low back and hips. L3-L5 R. Paraspinal tightness. PT-OP-H Neuro Start: 08/31/18 15:46 Freq: Status: Active Protocol: Document 09/01/18 09:01 LRN (Rec: 09/01/18 11:11 LRN [id number]) Sensation Evaluation Gross Sensation Gross Sensation WNL Comments Summary Comments Normal Deep Tendon Reflex & Clonus Assessment Deep Tendon Reflex Bilateral Achilles Deep Tendon Reflex 3+ Normal But Brisk Bilateral Patellar Deep Tendon Reflex 3+ Normal But Brisk PT-OP-J Posture/Palpation/Skin Start: 08/31/18 15:46 Freq: Status: Active Protocol: Document 09/01/18 09:01 LRN (Rec: 09/01/18 11:11 LRN [id number]) Posture Evaluation Comments Posture Comments Standing: Mild forward head, R shoulder is low, Mild C- Curve of Thoracic & Upper Lumbar spine with apex on left , Mild dowager hump, increased Lordosis and anterior tilt of pelvis. Umbilicus shifted Right. PT-OP-K Range of Motion Start: 08/31/18 15:46 Freq: Status: Active Protocol: Document 09/01/18 09:01 LRN (Rec: 09/01/18 11:11 LRN [id number]) Lumbar Spine Range of Motion Lumbar Spine Active Degrees Flexion 100 Extension 25 Lateral Flexion Left 14 Lateral Flexion Right 14 Comments WNL, No pain. Hip Goniometric Range of Motion Hip Measured in Degrees Right Passive Internal Rotation 10 External Rotation 35 Left Passive Internal Rotation 25 External Rotation 42 PT-OP-M Strength Start: 08/31/18 15:46 Freq: Status: Active Protocol: Document 09/01/18 09:01 LRN (Rec: 09/01/18 11:11 LRN [id number]) Trunk Strength Trunk Manual Muscle Testing Core Stabilization Pt not able to maintain core stability with MMT of hip flexors; therefore graded 3-/5 . Hip Strength Hip Manual Muscle Testing Right Comments WNL Left Comments WNL PT-OP-Q Treatments Start: 08/31/18 15:46 Freq: Status: Active Protocol: Document 09/01/18 09:01 LRN (Rec: 09/01/18 11:15 LRN [id number]) Therapeutic Exercises Supine Exercises Fig 4 Supine Exercise Name Hip ER Stretch Side right Comments Cuing for pt to gently stretch due to advanced stage. Piriformis Supine Exercise Name Piriformis Stretch Side right Comments Cuing for pt to gently stretch due to advanced stage, supine/sit. Self-Care/Home Management Treatment Education Other Education I/S pt in recommended exer of walking and water ex appropriate for . Discussed pool therapy for instructions on water exercise . Discussed options for exercising with her 2 year old . PT-OP-T Assessment and Plan Start: 08/31/18 15:46 Freq: Status: Active Protocol: Document 10/16/18 11:45 LJ (Rec: 10/16/18 14:40 [email or web address] [id number]) Physical Therapy Assessment Rehab Potential Rehabilitation Potential Excellent Evaluation Complexity Number of Personal Factors/Comorbidities 1-2 Number of Body Systems Impaired 3 Clinical Presentation at Evaluation Evolving Impairments Impairments Functional Mobility Pain Posture ROM Soft Tissue Mobility Strength Other Concerns Age Related Concerns Effect of injury on work and social life. Barriers to Rehabilitation Currently mother of a 2 year old son & 21 weeks . Goals Pt lacks an aquatic therapy program Natural Gas Treating Unit Operator Goal (LTG) Pt will be safe & independent on an aquatic exercise program . LTG Duration 10/12/18 Two Impairment Intermittent R Sciatic Pain Natural Gas Treating Unit Operator Goal (LTG) Patient will be able to demonstrate proper body mechanics with taking care of & playing with her 2 year old son to prevent onset of R sciatic pain. LTG Duration 09/11/18 One Impairment Lacks self care program Correction Goal (LTG) Pt will be independent with self care ex's. LTG Duration 10/02/18 Assessment Summary Assessment Pain in groin area relieved by flexion activities, HS and ITB stretch. Requiring cues for posture and recip. gait pattern in water walking. Physical Therapy Plan Frequency and Duration Frequency of Treatment 2x/Week Duration of Treatment 6 wks Plan of Care Start Date 09/01/18 Plan of Care End Date 10/12/18 Therapeutic Interventions Therapeutic Interventions Aquatic Therapy Home Exercise Program Manual Therapy Neuromuscular Re-education Self-Care/Home Management Soft Tissue Mobilization Taping Therapeutic Exercises Modalities Cold Pack/Ice Massage Other Therapeutic Interventions Possible need of an SI Belt in the future as she progresses in her . Next Visit Focus/Plan Next Visit Plan Depending on pt reaction to today's session consider giving pt HEP for independent pool exercise.
--- NOTE | 2018-10-29 14:46 | PT.OPPOC ---
Late entry for 10/09/18 PT visit) Current Diagnoses Sciatica, right side (10/16/18) 19 weeks gestation of (10/16/18) Provider Visit Care Team Role Provider Type Alida Davalos DO Family Provider Physician Primary Care Provider Specialty: Family Practice Address: [address] [place] [address], [id number] Email: [email or web address] Melissa Henry MD Attending Provider Physician Specialty: AUTO BODY TECHNICIAN Address: [address] [place] [address], [phone] Email: [email or web address] Plan Of Care PT-OP-T Assessment and Plan Start: 08/31/18 15:46 Freq: Status: Active Protocol: Document 10/16/18 11:45 LJ (Rec: 10/16/18 14:40 [id number] [id number]) Physical Therapy Assessment Rehab Potential Rehabilitation Potential Excellent Evaluation Complexity Number of Personal Factors/Comorbidities 1-2 Number of Body Systems Impaired 3 Clinical Presentation at Evaluation Evolving Impairments Impairments Functional Mobility Pain Posture ROM Soft Tissue Mobility Strength Other Concerns Age Related Concerns Effect of injury on work and social life. Barriers to Rehabilitation Currently mother of a 2 year old son & 21 weeks . Goals Pt lacks an aquatic therapy program Retirement Goal (LTG) Pt will be safe & independent on an aquatic exercise program . LTG Duration 10/12/18 Two Impairment Intermittent R Sciatic Pain Bessemer Converter Operator Goal (LTG) Patient will be able to demonstrate proper body mechanics with taking care of & playing with her 2 year old son to prevent onset of R sciatic pain. LTG Duration 09/11/18 One Impairment Lacks self care program Bessemer Converter Operator Goal (LTG) Pt will be independent with self care ex's. LTG Duration 10/02/18 Assessment Summary Assessment Pain in groin area relieved by flexion activities, HS and ITB stretch. Requiring cues for posture and recip. gait pattern in water walking. Physical Therapy Plan Frequency and Duration Frequency of Treatment 2x/Week Duration of Treatment 6 wks Plan of Care Start Date 09/01/18 Plan of Care End Date 10/12/18 Therapeutic Interventions Therapeutic Interventions Aquatic Therapy Home Exercise Program Manual Therapy Neuromuscular Re-education Self-Care/Home Management Soft Tissue Mobilization Taping Therapeutic Exercises Modalities Cold Pack/Ice Massage Other Therapeutic Interventions Possible need of an SI Belt in the future as she progresses in her . Next Visit Focus/Plan Next Visit Plan Depending on pt reaction to today's session consider giving pt HEP for independent pool exercise. Plan of Care Dates Plan of Care Start Date 09/01/18 Plan of Care End Date 10/12/18 Please Sign and Return: I have reviewed this Plan of Care and certify that the skilled therapy services above are required to meet the patient?s needs. Physician Signature Date Printed Name and Credentials Clinical Instructor Signature Printed Name and Credentials
--- NOTE | 2018-11-02 09:39 | PT.OPPOC ---
Current Diagnoses Sciatica, right side (10/30/18) 19 weeks gestation of (10/30/18) Provider Visit Care Team Role Provider Type Alida Davalos DO Family Provider Physician Primary Care Provider Specialty: Family Practice Address: [address] [place] [address], [address] Email: [email or web address] Melissa Henry MD Attending Provider Physician Specialty: LEGAL BILLING ANALYST Address: [address] [place] [address], [id number] Email: [email or web address] Plan Of Care PT-OP-T Assessment and Plan Start: 08/31/18 15:46 Freq: Status: Active Protocol: Document 11/02/18 09:30 SAK (Rec: 11/02/18 09:39 SAK [id number]) Physical Therapy Assessment Rehab Potential Rehabilitation Potential Excellent Other Concerns Age Related Concerns Effect of injury on work and social life. Barriers to Rehabilitation Currently mother of a 2 year old son & 21 weeks . Goals Pt lacks an aquatic therapy program Fdc Goal (LTG) Pt will be safe & independent on an aquatic exercise program . good goal progress LTG Duration 12/14/18 Two Impairment Intermittent R Sciatic Pain Lieutenant Colonel Goal (LTG) Patient will be able to demonstrate proper body mechanics with taking care of & playing with her 2 year old son to prevent onset of R sciatic pain. good goal progress LTG Duration 12/14/18 One Impairment Lacks self care program Lieutenant Colonel Goal (LTG) Pt will be independent with self care ex's. good goal progress LTG Duration 12/14/18 Progress Towards Goals Progress Towards Goals Progressing Toward Goals Assessment Summary Assessment Responding well to aquatic therapy with decrease in pain, improved function. She reports results from OB report she is at 28 wks instead of 26. Physical Therapy Plan Frequency and Duration Frequency of Treatment 1-2x/wk Duration of Treatment 2 months Plan of Care Start Date 10/16/18 Plan of Care End Date 12/14/18 Therapeutic Interventions Therapeutic Interventions Aquatic Therapy Home Exercise Program Manual Therapy Neuromuscular Re-education Self-Care/Home Management Soft Tissue Mobilization Taping Therapeutic Exercises Modalities Cold Pack/Ice Massage Other Therapeutic Interventions Possible need of an SI Belt in the future as she progresses in her . Next Visit Focus/Plan Next Note Type Treatment Note Next Visit Plan Continue progression of aquatic exercises for core stabilization; add deep water DLS Plan of Care Dates Plan of Care Start Date 10/16/18 Plan of Care End Date 12/14/18 Please Sign and Return: I have reviewed this Plan of Care and certify that the skilled therapy services above are required to meet the patient?s needs. Physician Signature Date Printed Name and Credentials Clinical Instructor Signature Printed Name and Credentials
--- NOTE | 2018-11-02 09:39 | PT.OTRE ---
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) (spontaneous vaginal delivery) (Resolved 06/11/16) Surgical History (Last Updated 06/08/18 @ 12:34 by Nadine Schofield) Anesthesia (Resolved) History of third molar tooth extraction (Resolved 1997) Provider Visit Care Team Role Provider Type Alida Davalos DO Family Provider Physician Primary Care Provider Specialty: Family Practice Address: [address] [place] [phone] Email: [email or web address] Melissa Henry MD Attending Provider Physician Specialty: BULB GROWER Address: [address] [place] [phone] Email: [email or web address] Physical Therapy Re-Evaluation PT-OP-A Visit Information Start: 08/31/18 15:46 Freq: Status: Active Protocol: Document 11/02/18 09:30 SAK (Rec: 11/02/18 09:39 SAK [id number]) Out-Patient Physical Therapy Visit Information Visit Information Visit Type Aquatic Treatment Note Visit Start Time 11:00 Visit Stop Time 11:45 Total Visit Minutes 45 Visit Number 7 Number of COREROOM FOUNDRY LABORER Visits 4 PT-OP-B Current Condition Start: 08/31/18 15:46 Freq: Status: Active Protocol: Document 09/01/18 09:01 LRN (Rec: 09/01/18 09:22 LRN [id number]) Current Condition History of Current Condition Onset Date Aug 12, 2018 Current Complaints R Sciatica History of Current Condition Pt is 21 weeks . She states after taking a business trip back east, in which she wore high heels for the first time in awhile, she woke the morning of her return to an onset of R Sciatic pain that was very severe. She states gradually she has gotten better during the 3 weeks she had to wait to get into therapy. She now reports intermittent sharp pain in the low back at the sacral level that radiates intermittently into the R posterior thigh, ending just above the knee. She denies any traumatic injury to her back or LE's. Prior Treatments and Tests No Treatment Goals Patient/Caregiver Goals Wants to be able to function without pain. Walk with friends and play with son at park. Don't want be put on bedrest. Would like to know what exercises she can do and what is safe to do. Prior Functional Status Baseline Function- ADL's Independent Current Functional Impairments (Reported) Functional Limitations- Work/School Sit too long, feels cramping in the area. Functional Limitations- Recreation/ Cut down on walking. Not Hobbies swimming and yoga. 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 PT-OP-C Subjective Start: 08/31/18 15:46 Freq: Status: Active Protocol: Document 11/02/18 09:30 SAK (Rec: 11/02/18 09:39 SAK [id number]) OP-PT Subjective Patient Comments Patient Comments Less pain than prior to starting aquatic therapy, has tried to come in and do some on own. PT-OP-F Manual Assessment Start: 08/31/18 15:46 Freq: Status: Active Protocol: Document 09/01/18 09:01 LRN (Rec: 09/01/18 11:11 LRN [id number]) Manual Assessments Soft Tissue Assessment Soft Tissue Mobility Assessment Symmetrical in low back and hips. L3-L5 R. Paraspinal tightness. PT-OP-H Neuro Start: 08/31/18 15:46 Freq: Status: Active Protocol: Document 09/01/18 09:01 LRN (Rec: 09/01/18 11:11 LRN [id number]) Sensation Evaluation Gross Sensation Gross Sensation WNL Comments Summary Comments Normal Deep Tendon Reflex & Clonus Assessment Deep Tendon Reflex Bilateral Achilles Deep Tendon Reflex 3+ Normal But Brisk Bilateral Patellar Deep Tendon Reflex 3+ Normal But Brisk PT-OP-J Posture/Palpation/Skin Start: 08/31/18 15:46 Freq: Status: Active Protocol: Document 09/01/18 09:01 LRN (Rec: 09/01/18 11:11 LRN [id number]) Posture Evaluation Comments Posture Comments Standing: Mild forward head, R shoulder is low, Mild C- Curve of Thoracic & Upper Lumbar spine with apex on left , Mild dowager hump, increased Lordosis and anterior tilt of pelvis. Umbilicus shifted Right. PT-OP-K Range of Motion Start: 08/31/18 15:46 Freq: Status: Active Protocol: Document 09/01/18 09:01 LRN (Rec: 09/01/18 11:11 LRN [id number]) Lumbar Spine Range of Motion Lumbar Spine Active Degrees Flexion 100 Extension 25 Lateral Flexion Left 14 Lateral Flexion Right 14 Comments WNL, No pain. Hip Goniometric Range of Motion Hip Measured in Degrees Right Passive Internal Rotation 10 External Rotation 35 Left Passive Internal Rotation 25 External Rotation 42 PT-OP-M Strength Start: 08/31/18 15:46 Freq: Status: Active Protocol: Document 09/01/18 09:01 LRN (Rec: 09/01/18 11:11 LRN [id number]) Trunk Strength Trunk Manual Muscle Testing Core Stabilization Pt not able to maintain core stability with MMT of hip flexors; therefore graded 3-/5 . Hip Strength Hip Manual Muscle Testing Right Comments WNL Left Comments WNL PT-OP-Q Treatments Start: 08/31/18 15:46 Freq: Status: Active Protocol: Document 09/01/18 09:01 LRN (Rec: 09/01/18 11:15 LRN [id number]) Therapeutic Exercises Supine Exercises Fig 4 Supine Exercise Name Hip ER Stretch Side right Comments Cuing for pt to gently stretch due to advanced stage. Piriformis Supine Exercise Name Piriformis Stretch Side right Comments Cuing for pt to gently stretch due to advanced stage, supine/sit. Self-Care/Home Management Treatment Education Other Education I/S pt in recommended exer of walking and water ex appropriate for . Discussed pool therapy for instructions on water exercise . Discussed options for exercising with her 2 year old . PT-OP-T Assessment and Plan Start: 08/31/18 15:46 Freq: Status: Active Protocol: Document 11/02/18 09:30 SAK (Rec: 11/02/18 09:39 SAK [id number]) Physical Therapy Assessment Rehab Potential Rehabilitation Potential Excellent Other Concerns Age Related Concerns Effect of injury on work and social life. Barriers to Rehabilitation Currently mother of a 2 year old son & 21 weeks . Goals Pt lacks an aquatic therapy program Quality Assurance Engineer Goal (LTG) Pt will be safe & independent on an aquatic exercise program . good goal progress LTG Duration 12/14/18 Two Impairment Intermittent R Sciatic Pain Quality Assurance Engineer Goal (LTG) Patient will be able to demonstrate proper body mechanics with taking care of & playing with her 2 year old son to prevent onset of R sciatic pain. good goal progress LTG Duration 12/14/18 One Impairment Lacks self care program Quality Assurance Engineer Goal (LTG) Pt will be independent with self care ex's. good goal progress LTG Duration 12/14/18 Progress Towards Goals Progress Towards Goals Progressing Toward Goals Assessment Summary Assessment Responding well to aquatic therapy with decrease in pain, improved function. She reports results from OB report she is at 28 wks instead of 26. Physical Therapy Plan Frequency and Duration Frequency of Treatment 1-2x/wk Duration of Treatment 2 months Plan of Care Start Date 10/16/18 Plan of Care End Date 12/14/18 Therapeutic Interventions Therapeutic Interventions Aquatic Therapy Home Exercise Program Manual Therapy Neuromuscular Re-education Self-Care/Home Management Soft Tissue Mobilization Taping Therapeutic Exercises Modalities Cold Pack/Ice Massage Other Therapeutic Interventions Possible need of an SI Belt in the future as she progresses in her . Next Visit Focus/Plan Next Note Type Treatment Note Next Visit Plan Continue progression of aquatic exercises for core stabilization; add deep water DLS
--- NOTE | 2018-11-13 14:20 | PT.OPDS ---
Current Diagnoses Sciatica, right side (11/13/18) 19 weeks gestation of (11/13/18) Provider Visit Care Team Role Provider Type Alida Davalos DO Family Provider Physician Primary Care Provider Specialty: Family Practice Address: [address] [place], [address] Email: [email or web address] Melissa Henry MD Attending Provider Physician Specialty: TROLLEY COLLECTOR Address: [address] [place] [address], [address] Email: [email or web address] Visit Number Visit Number 8 Discharge Summary PT-OP-B Current Condition Start: 08/31/18 15:46 Freq: Status: Active Protocol: Document 09/01/18 09:01 LRN (Rec: 09/01/18 09:22 LRN [id number]) Current Condition History of Current Condition Onset Date Aug 12, 2018 Current Complaints R Sciatica History of Current Condition Pt is 21 weeks . She states after taking a business trip back [facility], in which she wore high heels for the first time in awakle, she woke the morning of her return to an onset of R Sciatic pain that was very severe. She states gradually she has gotten better during the 3 weeks she had to wait to get into therapy. She now reports intermittent sharp pain in the low back at the sacral level that radiates intermittently into the R posterior thigh, ending just above the knee. She denies any traumatic injury to her back or LE's. Prior Treatments and Tests No Treatment Goals Patient/Caregiver Goals Wants to be able to function without pain. Walk with friends and play with son at park. Don't want be put on bedrest. Would like to know what exercises she can do and what is safe to do. Prior Functional Status Baseline Function- ADL's Independent Current Functional Impairments (Reported) Functional Limitations- Work/School Sit too long, feels cramping in the area. Functional Limitations- Recreation/ Cut down on walking. Not Hobbies swimming and yoga. 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 PT-OP-C Subjective Start: 08/31/18 15:46 Freq: Status: Active Protocol: Document 11/13/18 12:30 LJ (Rec: 11/13/18 15:49 LJ [id number]) OP-PT Subjective Patient Comments Patient Comments Pt reports pelvic pain consistent with 3rd trimester. PT-OP-F Manual Assessment Start: 08/31/18 15:46 Freq: Status: Active Protocol: Document 09/01/18 09:01 LRN (Rec: 09/01/18 11:11 LRN [id number]) Manual Assessments Soft Tissue Assessment Soft Tissue Mobility Assessment Symmetrical in low back and hips. L3-L5 R. Paraspinal tightness. PT-OP-H Neuro Start: 08/31/18 15:46 Freq: Status: Active Protocol: Document 09/01/18 09:01 LRN (Rec: 09/01/18 11:11 LRN [id number]) Sensation Evaluation Gross Sensation Gross Sensation WNL Comments Summary Comments Normal Deep Tendon Reflex & Clonus Assessment Deep Tendon Reflex Bilateral Achilles Deep Tendon Reflex 3+ Normal But Brisk Bilateral Patellar Deep Tendon Reflex 3+ Normal But Brisk PT-OP-J Posture/Palpation/Skin Start: 08/31/18 15:46 Freq: Status: Active Protocol: Document 09/01/18 09:01 LRN (Rec: 09/01/18 11:11 LRN [id number]) Posture Evaluation Comments Posture Comments Standing: Mild forward head, R shoulder is low, Mild C- Curve of Thoracic & Upper Lumbar spine with apex on left , Mild dowager hump, increased Lordosis and anterior tilt of pelvis. Umbilicus shifted Right. PT-OP-K Range of Motion Start: 08/31/18 15:46 Freq: Status: Active Protocol: Document 09/01/18 09:01 LRN (Rec: 09/01/18 11:11 LRN [id number]) Lumbar Spine Range of Motion Lumbar Spine Active Degrees Flexion 100 Extension 25 Lateral Flexion Left 14 Lateral Flexion Right 14 Comments WNL, No pain. Hip Goniometric Range of Motion Hip Measured in Degrees Right Passive Internal Rotation 10 External Rotation 35 Left Passive Internal Rotation 25 External Rotation 42 PT-OP-M Strength Start: 08/31/18 15:46 Freq: Status: Active Protocol: Document 09/01/18 09:01 LRN (Rec: 09/01/18 11:11 LRN [id number]) Trunk Strength Trunk Manual Muscle Testing Core Stabilization Pt not able to maintain core stability with MMT of hip flexors; therefore graded 3-/5 . Hip Strength Hip Manual Muscle Testing Right Comments WNL Left Comments WNL PT-OP-T Assessment and Plan Start: 08/31/18 15:46 Freq: Status: Active Protocol: Document 11/13/18 14:18 SAK (Rec: 02/03/19 14:20 SAK [id number]) Physical Therapy Plan Discharge Physical Therapy Discharge Reasons Goals Met Discharge Comments Patient was to continue aquatic exercises independnetly
--- NOTE | 2018-11-13 15:49 | PT.OTN ---
Current Diagnoses Sciatica, right side (11/13/18) 19 weeks gestation of (11/13/18) Physical Therapy Treatment Note PT-OP-A Visit Information Start: 08/31/18 15:46 Freq: Status: Active Protocol: Document 11/13/18 12:30 LJ (Rec: 11/13/18 15:49 LJ [id number]) Out-Patient Physical Therapy Visit Information Visit Information Visit Type Aquatic Treatment Note Visit Start Time 12:30 Visit Stop Time 13:15 Total Visit Minutes 45 Visit Number 8 Number of SENIOR CYTOGENETICS LABORATORY DIRECTOR Visits 1 PT-OP-B Current Condition Start: 08/31/18 15:46 Freq: Status: Active Protocol: Document 09/01/18 09:01 LRN (Rec: 09/01/18 09:22 LRN [id number]) Current Condition History of Current Condition Onset Date Aug 12, 2018 Current Complaints R Sciatica History of Current Condition Pt is 21 weeks . She states [place], in which she wore high heels for the first time in awhile, she woke the morning of her return to an onset of R Sciatic pain that was very severe. She states gradually she has gotten better during the 3 weeks she had to wait to get into therapy. She now reports intermittent sharp pain in the low back at the sacral level that radiates intermittently into the R posterior thigh, ending just above the knee. She denies any traumatic injury to her back or LE's. Prior Treatments and Tests No Treatment Goals Patient/Caregiver Goals Wants to be able to function without pain. Walk with friends and play with son at park. Don't want be put on bedrest. Would like to know what exercises she can do and what is safe to do. Prior Functional Status Baseline Function- ADL's Independent Current Functional Impairments (Reported) Functional Limitations- Work/School Sit too long, feels cramping in the area. Functional Limitations- Recreation/ Cut down on walking. Not Hobbies swimming and yoga. 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 PT-OP-C Subjective Start: 08/31/18 15:46 Freq: Status: Active Protocol: Document 02/01/19 12:30 LJ (Rec: 11/13/18 15:49 LJ [id number]) OP-PT Subjective Patient Comments Patient Comments Pt reports pelvic pain consistent with 3rd trimester. PT-OP-F Manual Assessment Start: 08/31/18 15:46 Freq: Status: Active Protocol: Document 09/01/18 09:01 LRN (Rec: 09/01/18 11:11 LRN [id number]) Manual Assessments Soft Tissue Assessment Soft Tissue Mobility Assessment Symmetrical in low back and hips. L3-L5 R. Paraspinal tightness. PT-OP-H Neuro Start: 08/31/18 15:46 Freq: Status: Active Protocol: Document 09/01/18 09:01 LRN (Rec: 09/01/18 11:11 LRN [id number]) Sensation Evaluation Gross Sensation Gross Sensation WNL Comments Summary Comments Normal Deep Tendon Reflex & Clonus Assessment Deep Tendon Reflex Bilateral Achilles Deep Tendon Reflex 3+ Normal But Brisk Bilateral Patellar Deep Tendon Reflex 3+ Normal But Brisk PT-OP-J Posture/Palpation/Skin Start: 08/31/18 15:46 Freq: Status: Active Protocol: Document 09/01/18 09:01 LRN (Rec: 09/01/18 11:11 LRN [id number]) Posture Evaluation Comments Posture Comments Standing: Mild forward head, R shoulder is low, Mild C- Curve of Thoracic & Upper Lumbar spine with apex on left , Mild dowager hump, increased Lordosis and anterior tilt of pelvis. Umbilicus shifted Right. PT-OP-K Range of Motion Start: 08/31/18 15:46 Freq: Status: Active Protocol: Document 09/01/18 09:01 LRN (Rec: 09/01/18 11:11 LRN [id number]) Lumbar Spine Range of Motion Lumbar Spine Active Degrees Flexion 100 Extension 25 Lateral Flexion Left 14 Lateral Flexion Right 14 Comments WNL, No pain. Hip Goniometric Range of Motion Hip Measured in Degrees Right Passive Internal Rotation 10 External Rotation 35 Left Passive Internal Rotation 25 External Rotation 42 PT-OP-M Strength Start: 08/31/18 15:46 Freq: Status: Active Protocol: Document 09/01/18 09:01 LRN (Rec: 09/01/18 11:11 LRN [id number]) Trunk Strength Trunk Manual Muscle Testing Core Stabilization Pt not able to maintain core stability with MMT of hip flexors; therefore graded 3-/5 . Hip Strength Hip Manual Muscle Testing Right Comments WNL Left Comments WNL PT-OP-Q Treatments Start: 08/31/18 15:46 Freq: Status: Active Protocol: Document 09/01/18 09:01 LRN (Rec: 09/01/18 11:15 LRN [id number]) Therapeutic Exercises Supine Exercises Fig 4 Supine Exercise Name Hip ER Stretch Side right Comments Cuing for pt to gently stretch due to advanced stage. Piriformis Supine Exercise Name Piriformis Stretch Side right Comments Cuing for pt to gently stretch due to advanced stage, supine/sit. Self-Care/Home Management Treatment Education Other Education I/S pt in recommended exer of walking and water ex appropriate for . Discussed pool therapy for instructions on water exercise . Discussed options for exercising with her 2 year old . PT-OP-S Aquatic Treatment Start: 08/31/18 15:46 Freq: Status: Active Protocol: Document 11/13/18 12:30 LJ (Rec: 11/13/18 15:49 LJ [id number]) Aquatics Treatment Pool Entry/Exit Pool Entry/Exit Method Stairs Assistance Independent Water Walking Sideways Water Level Chest Level Comments IR/ER UEs fwd,bck,side, december, december Water Level Chest Level Comments no sideways Lower Extremity Exercises single leg squat edy Water Level Chest Level Reps/Duration holding #8 Comments cues for shoulder retraction ER/IR Details 90/90 (hip knee) Body Position Standing Water Level Waist Level squats Reps/Duration 10x3 Comments holding #8 wts hip flex/ext Body Position Standing Water Level Chest Level Reps/Duration 10x Leg circles Body Position Standing Water Level Chest Level Reps/Duration 10x ea CC, CCW Lower Extremity Stretches IT band Body Position Standing Water Level Chest Level Equipment Small Noodle Reps/Duration 2x HS Body Position Standing Reps/Duration 2x Comments small noodle DKTC, SKTC Water Level Chest Level Reps/Duration 2x ea Comments with deep breathing Upper Extremity Exercises shld flex/ext Body Position Sitting Water Level Chest Level Reps/Duration 10x bilat Comments alternate and simultaneous arms sh hor ab/ad Body Position Sitting Water Level Chest Level Reps/Duration 10 edy, 10 unil Upper Extremity Stretches fwd walking holding noodle behind bck Reps/Duration 2 laps [place] Activities [place] Activities Bicycle [place] Other Activities Supine float w/noodle under arms Duration 15 PT-OP-T Assessment and Plan Start: 08/31/18 15:46 Freq: Status: Active Protocol: Document 11/13/18 12:30 [id number] (Rec: 11/13/18 15:49 LJ [id number]) Physical Therapy Assessment Rehab Potential Rehabilitation Potential Excellent Evaluation Complexity Number of Personal Factors/Comorbidities 1-2 Number of Body Systems Impaired 3 Clinical Presentation at Evaluation Evolving Impairments Impairments Functional Mobility Pain Posture ROM Soft Tissue Mobility Strength Other Concerns Age Related Concerns Effect of injury on work and social life. Barriers to Rehabilitation Currently mother of a 2 year old son & 21 weeks . Goals Pt lacks an aquatic therapy program Systems Analyst Engineer Goal (LTG) Pt will be safe & independent on an aquatic exercise program . good goal progress LTG Duration 12/14/18 Two Impairment Intermittent R Sciatic Pain Senior Living Goal (LTG) Patient will be able to demonstrate proper body mechanics with taking care of & playing with her 2 year old son to prevent onset of R sciatic pain. good goal progress LTG Duration 12/14/18 One Impairment Lacks self care program Senior Living Goal (LTG) Pt will be independent with self care ex's. good goal progress LTG Duration 12/14/18 Progress Towards Goals Progress Towards Goals Progressing Toward Goals Assessment Summary Assessment Responding well to aquatic therapy with decrease in pain, improved function. Pt able to relax and relieve pressure on pelvis in supine float. Comes to pool on her own occasionally and will continue supine float for pain relief. Physical Therapy Plan Frequency and Duration Frequency of Treatment 1-2x/wk Duration of Treatment 2 months Plan of Care Start Date 10/16/18 Plan of Care End Date 12/14/18 Therapeutic Interventions Therapeutic Interventions Aquatic Therapy Home Exercise Program Manual Therapy Neuromuscular Re-education Self-Care/Home Management Soft Tissue Mobilization Taping Therapeutic Exercises Modalities Cold Pack/Ice Massage Other Therapeutic Interventions Possible need of an SI Belt in the future as she progresses in her . Next Visit Focus/Plan Next Note Type Treatment Note Next Visit Plan Spoke to pt about possibility of using belt last part of . Continue aquatic exercise with allowing time for pt to supine float for pelvic pressure relief.
== END 2019-02-03 15:33 | disposition home or self-care (01) ==
LOC: PHYS 12:30
PROVIDERS: Family Provider Family Medicine; PCP Family Medicine; Visit Provider Specialist
DX: M54.31 Sciatica, right side (principal); Z3A.19 19 weeks gestation of pregnancy
CPT/HCPCS: 97113; 97162; 97535

== ENCOUNTER → 2018-12-04 11:59 | Outpatient (CLI) | payer OTHER, SELFPAY ==
[2018-12-05 12:27] LABS: Strep Grp B PCR NEG for Grp B Strep
== END ==
PROVIDERS: Family Provider Family Medicine; PCP Family Medicine; Visit Provider Specialist
DX: Z3A.35 35 weeks gestation of pregnancy (principal)
CPT/HCPCS: 87653

== ENCOUNTER 2018-12-29 01:08 | Outpatient (CLI) | payer OTHER, SELFPAY ==
--- NOTE | 2018-12-29 02:11 | PM.OBTRLD ---
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 Grandmother Alzheimer's disease Grandfather Postoperative infection Mother No problems noted. Family History Father Age: 71 Parkinson's disease Grandfather Cancer Prostate cancer Grandmother Heart disease Stroke Brother No problems noted. Grandmother Alzheimer's disease Grandfather Postoperative infection Mother No problems noted. Evaluation Evaluation Baseline heart rate: 120 Variability: Moderate (11-25) monitor accelerations: Present monitor decelerations: Absent Contraction Frequency (minutes): 8 Uterine Contraction Intensity: Mild Category of Tracing: I Cervical dilation (cm): 5 Cervical effacement (%): 80 station: -1 Diagnosis, Plan/Disposition Final Diagnosis (1) Premature uterine contractions: Current Visit: Yes Status: Acute (2) 37 weeks gestation of : Current Visit: Yes Status: Acute Plan/Disposition Plan: Patient not in active labor. She will be discharged home and has an OB appointment later today. OB Disposition: home
== END 2018-12-29 02:25 | disposition home or self-care (01) ==
LOC: LABOR 01:27 → OB 14:18
PROVIDERS: Family Provider Family Medicine; PCP Family Medicine; Visit Provider Specialist
DX: Z34.83 Encounter for supervision of other normal pregnancy, third trimester (principal); Z3A.37 37 weeks gestation of pregnancy; O47.1 False labor at or after 37 completed weeks of gestation
CPT/HCPCS: 59025; 87653; G0378; G0379

== ENCOUNTER → 2018-12-29 14:09 | Outpatient (CLI) | payer OTHER, SELFPAY ==
[2018-12-30 10:13] LABS: Strep Grp B PCR NEG for Grp B Strep
== END ==
PROVIDERS: Family Provider Family Medicine; PCP Family Medicine; Visit Provider Specialist
DX: Z34.83 Encounter for supervision of other normal pregnancy, third trimester (principal); Z3A.37 37 weeks gestation of pregnancy
CPT/HCPCS: 87653

== ENCOUNTER 2018-12-31 04:23 | Outpatient (CLI) | payer OTHER, SELFPAY | END 2018-12-31 06:02 | disposition home or self-care (01) | LOC: OB 13:58 | PROVIDERS: Family Provider Family Medicine; PCP Family Medicine; Visit Provider Family Medicine | DX: Z34.83 Encounter for supervision of other normal pregnancy, third trimester (principal); Z3A.37 37 weeks gestation of pregnancy | CPT/HCPCS: 59025; G0378; G0379 ==

== ENCOUNTER 2019-01-01 00:26 | Inpatient (IN) | payer OTHER, SELFPAY ==
--- NOTE | 2019-01-01 01:31 | PM.OBPRVD ---
Delivery date: 01/01/19 Intrapartal events: Precipitous Labor < 3 hours Cervical ripening method: none Induction method: none Delivery monitor: external FHT and external uterine Route of delivery: Episiotomy description: None L&D Laceration Description: None Estimated blood loss (mL): 100 Anesthesia type: None Complications: None Narrative: Patient arrived at Center complete, 15 minutes after SROM at home. Patient complete and pushed x 2. At 0058 am, a live male infant delivered spontaneously over an intact perineum. After the cord stopped pulsing, the cord was double-clamped and cut. Cord bloods were obtained. The placenta delivered intact with a 3-vessel cord at 0106. Fundus massaged to firm. No lacerations observed. EBL 100cc. Apgars 8 at 1 minute and 9 at 5 minutes. No analgesia. . Mom and infant stable to recovery Plan for aftercare: Routine care
--- NOTE | 2019-01-01 01:51 | PM.OBHP.1 ---
OB HPI Date/Time Date of admission: 01/01/19 Date Patient Seen: 01/01/19 Time Patient Seen: 00:56 History of Present Condition Chief complaint: obs : 2 Para: 1 Estimated Date of Delivery: 01/14/19 Estimated Gestational Age (weeks): 38+1 Narrative: Betsy Rosas is a 43 year old female 2 para 1 entering second stage of labor Comments: Prodromal labor over the past few days History of Present care: good care, initiated at week # (8), number of visits (12) and pounds weight gain (42) Dating criteria: based on 1st trimester US only Ultrasounds: normal 1st trimester US and normal mid trimester US Obstetrical complications: none Medical complications: none Narrative: AMA HSV 2 positive Preadmission Labs Blood type: O (+) positive -: Antibody screen: negative, GBS status: negative, HBsAG: negative, HIV: negative, HSV 1: negative, HSV 2: negative and RPR/VDLR: negative -: Rubella: immune and Varicella: immune HCT: 37.4 HCAB: negative PAP: Normal Urine: neg 1 hr GTT: 139 Prior (ies) History: 06/11/16 M 5#15oz IH Foist Evaluation Evaluation Baseline heart rate: 135 Variability: Moderate (11-25) monitor accelerations: Present monitor decelerations: Absent Contraction Frequency (minutes): 3 Uterine Contraction Intensity: Strong/Firm Category of Tracing: I Cervical dilation (cm): 10 Cervical effacement (%): 100 station: +3 PFSH Medical History Abnormal Pap smear of cervix (Resolved ~1999) 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 Grandmother Alzheimer's disease Grandfather Postoperative infection Mother No problems noted. Family History Father Age: 71 Parkinson's disease Grandfather Cancer Prostate cancer Grandmother Heart disease Stroke Brother No problems noted. Grandmother Alzheimer's disease Grandfather Postoperative infection Mother No problems noted. Meds Home Medications Medication Instructions Recorded Confirmed Type vit-iron fum-folic ac 1 tab PO Q DAY #0 05/17/17 History [Mynatal] cholecalciferol (vitamin D3) 5,000 unit PO QDAY #0 06/03/17 History Allergies Allergy/AdvReac Type Severity Reaction Status Date / Time Penicillins [PENICILLINS] Allergy Unknown Unverified 01/21/18 12:37 Exam Vital Signs (past 8 hours): General: In moderate distress secondary to contractions. Lungs: CTA bilat CV: RRR FH: 38cm Ext: Tr edema Assessment and Plan Assessment and Plan Assessment and Plan narrative: Assessment: 43 y.o at 38 1/7 weeks gestation entering second stage of labor Plan: Expectant management to Time Spent with Patient Total time spent with greater than 50% in coordination of care (as documented) at patient's floor/unit and/or counseling patient:: 25 - 35 minutes
[2019-01-01] MEDS: IBUPROFEN 600 MG TABLET PO (05:06)
[2019-01-01 05:42] VITALS: BP 138/84
[2019-01-01 07:12] LABS: Hematocrit 37.9 % (36-46); Hemoglobin 12.7 g/dL (12.0-16.0)
[2019-01-01 21:24] VITALS: BP 126/81; PULSE 68; RESP 20; TEMP 36.5
--- NOTE | 2019-01-02 20:00 | PM.OBDS.1 ---
Discharge Providers Date of admission: 01/01/19 00:26 Discharge Date: 01/01/19 Primary care physician: Alida Davalos DO Consults: 01/01/19 01:27 Consult to Manager Transit Routine Comment: Discharge provider: Muna Gallardo MD Summary Date Patient Seen: 01/01/19 Time Patient Seen: 17:45 Procedures: Spontaneous vaginal delivery Hospital Course: Patient is a 43-year-old 2 para 2 day number 0-1 status post spontaneous vaginal delivery at for precipitous labor Peripartum Data Infant Delivery Method: Natural Vaginal Laceration description: None Episiotomy description: None Procedures: Spontaneous vaginal delivery complications: none Status at Discharge Cognitive/behavioral status at discharge: oriented Functional status at discharge: independent ambulation Overall status at discharge: patient is progressing back to baseline Time Spent with Patient Total time spent providing and/or coordinating discharge services: Less than 30 minutes Objective Labs Result Diagrams: 01/01/19 06:42 Exam Vital Signs (past 8 hours): Generally: Patient is sitting up in bed, holding , no acute distress Fundus: Firm at U -1 Extremities: Trace edema, negative Homans Discharge Plan Discharge Plan Patient Disposition: Home Discharge comment: Call with fever, chills or bleeding vaginally more than a pad in an hour Discharge Med Rec/Prescriptions Prescriptions: Continued vit-iron fum-folic ac [Mynatal] 1 EACH capsule 1 tab PO Q DAY Qty: 0 RF: 0 cholecalciferol (vitamin D3) 5,000 UNIT capsule 5,000 unit PO QDAY Qty: 0 RF: 0 Follow up/Referrals: Melissa Henry MD [Physician] - 6 Weeks Provider Discharge Instructions Diet: Regular Activity: No intercourse until 6 week visit Skin/Wound/Dressing Care Report to your healthcare provider any signs of infection, such as:: chills, fever, increased pain and unusual drainage Visit Report/Discharge Packet Instructions: DI for Heart Failure, DI for Labor and Delivery, Vaginal Discharge Data Primary Care Provider: Alida Davalos Attending Provider: Muna Gallardo Admit Date/Time: 01/01/19 00:26 Discharges patient from system. Discharge Date/Time: 01/01/19 21:30
== END 2019-01-01 21:30 | disposition home or self-care (01) | DRG 807 ==
PROVIDERS: Admitting Provider Obstetrics & Gynecology; Family Provider Family Medicine; PCP Family Medicine; Visit Provider Obstetrics & Gynecology
DX: O62.3 Precipitate labor (principal); Z37.0 Single live birth; Z3A.38 38 weeks gestation of pregnancy
CPT/HCPCS: 36415; 59400; 59409; 85014; 85018; G0379

== ENCOUNTER → 2020-09-06 17:34 | Outpatient (CLI) | payer OTHER, SELFPAY ==
--- NOTE | 2020-09-06 17:38 | DI.MG.S_ITS ---
BILATERAL DIGITAL SCREENING MAMMOGRAM 3D/2D WITH CAD: 09/06/2020 CLINICAL: Routine screening. Baseline exam. Family history of breast cancer. No prior exams were available for comparison. The tissue of both breasts is heterogeneously dense. This may lower the sensitivity of mammography. Current study was also evaluated with a Computer Aided Detection (CAD) system. No significant masses, calcifications, or other findings are seen in either breast. IMPRESSION: NEGATIVE There is no mammographic evidence of malignancy. A 1 year screening mammogram is recommended. This exam was interpreted at Station ID: [id number]. NOTE: For mammograms, a report in lay terms will be sent to the patient. Approximately 15% of breast malignancies will not be visualized mammographically. In the management of a palpable breast mass, a negative mammogram must not discourage biopsy of a clinically suspicious lesion. Electronically Signed By: Mary Lou clement/hal:09/12/2020 16:09:45 letter sent: Normal Exam ACR BI-RADS Category 1: Negative [id number]
== END ==
PROVIDERS: Family Provider Family Medicine; PCP Family Medicine; Referring Provider Family Medicine; Visit Provider Family Medicine
DX: Z12.31 Encounter for screening mammogram for malignant neoplasm of breast (principal); Z80.3 Family history of malignant neoplasm of breast
CPT/HCPCS: 77063; 77067

== ENCOUNTER → 2020-09-19 14:06 | Outpatient (CLI) | payer OTHER, SELFPAY ==
--- NOTE | 2020-09-19 14:10 | DI.RAD.S_ITS ---
PROCEDURE: XR LUMBAR SPINE 2-3V INDICATIONS: lower back injury TECHNIQUE: 3 views of the lumbar spine were acquired. COMPARISON: None. FINDINGS: Bones: 5 [id number] vertebrae are present. There is normal bony alignment. Mild dextrocurvature of the lumbar spine. There is moderate facet arthropathy at L4-L5 and L5-S1. No fractures. No suspicious bony lesions. Soft tissues: Overlying bowel gas pattern is normal. No suspicious soft tissue calcifications. IMPRESSION: 1. No fractures. 2. Moderate facet arthropathy at L4-L5 and L5-S1. Dictated by: Dennis Levine M.D. on 09/19/2020 at 17:11 Approved by: Dennis Leivne M.D. on 09/19/2020 at 17:12
== END ==
PROVIDERS: Family Provider Family Medicine; PCP Family Medicine; Referring Provider Registered Nurse; Visit Provider Registered Nurse
DX: S39.92XA Unspecified injury of lower back, initial encounter (principal); M47.816 Spondylosis without myelopathy or radiculopathy, lumbar region; M47.817 Spondylosis without myelopathy or radiculopathy, lumbosacral region; X58.XXXA Exposure to other specified factors, initial encounter
CPT/HCPCS: 72100

== ENCOUNTER → 2021-01-31 11:49 | Outpatient (CLI) | payer OTHER, SELFPAY ==
--- NOTE | 2021-01-31 12:19 | DI.US.S_ITS ---
PROCEDURE: US PERIPH VENOUS LOW EXTREM LT INDICATIONS: LEFT KNEE PAIN 2 WEEKS POST J J VACCINE TECHNIQUE: Real-time imaging, as well as color and pulse Doppler interrogation, were performed of the lower extremity deep veins from the inguinal ligament to the popliteal fossa. COMPARISON: None. FINDINGS: The common femoral, femoral and popliteal veins are normally compressible, and free of intraluminal thrombus. Color and pulse Doppler demonstrate normal phasic intraluminal flow. There is normal augmentation response to distal compression maneuver. Additional, dedicated ultrasound scanning is performed at the area of pain medially. No focal ultrasound abnormalities are seen within this region. IMPRESSION: Negative for deep venous thrombosis. Dictated by: Yung Verma M.D. on 01/31/2021 at 11:26 Approved by: Yung Verma M.D. on 01/31/2021 at 11:26
[2021-01-31 14:03] LABS: Add Manual Diff / Slide Review NO; Basophils Absolute Auto 100 /uL (0-100); Basophils Percent Auto 0.8 % (0-2); Eosinophils Absolute Auto 100 /uL (0-450); Eosinophils Percent Auto 1.3 % (2-4); Hematocrit 43.1 % (36-46); Hemoglobin 14.7 g/dL (12.0-16.0); Lymphocytes Absolute Auto 2200 /uL (1100-4500); Lymphocytes Percent Auto 24.8 % (25-40); Mean Corpuscular HGB Conc 34.2 % (30-36); Mean Corpuscular Hemoglobin 29.3 PG (26-34); Mean Corpuscular Volume 85.6 fL (80-100); Monocytes Absolute Auto 700 /uL (0-900); Monocytes Percent Auto 7.8 % (3-14); Neutrophils Absolute Auto 5900 /uL (1500-7000); Neutrophils Percent Auto 65.3 % (50-75); Platelet Count 331 X10^3/uL (150-400); Red Blood Cell Count 5.04 X10^6/uL (4.0-5.2); Red Cell Distribution Width 12.7 % (11.6-14.8)
[2021-01-31 14:11] LABS: Prothrombin Time 11.8 SECONDS (10.1-12.7)
[2021-01-31 14:36] LABS: D Dimer < 200 ng/mL (<230)
== END ==
PROVIDERS: Family Provider Family Medicine; PCP Family Medicine; Referring Provider Nurse Practitioner; Visit Provider Nurse Practitioner
DX: M25.562 Pain in left knee (principal); M79.662 Pain in left lower leg
CPT/HCPCS: 36415; 85025; 85379; 85610; 93971

== ENCOUNTER → 2021-09-12 16:57 | Outpatient (CLI) | payer OTHER, SELFPAY ==
--- NOTE | 2021-09-12 16:58 | DI.MG.S_ITS ---
BILATERAL DIGITAL SCREENING MAMMOGRAM 3D/2D WITH CAD: 09/12/2021 CLINICAL: Routine screening. Family history of breast cancer. Comparison is made [facility] There are scattered fibroglandular elements in both breasts. Current study was also evaluated with a Computer Aided Detection (CAD) system. No significant masses, calcifications, or other findings are seen in either breast. There has been no significant interval change. IMPRESSION: NEGATIVE There is no mammographic evidence of malignancy. A 1 year screening mammogram is recommended. This exam was interpreted at Station ID: [id number]. NOTE: For mammograms, a report in lay terms will be sent to the patient. Approximately 15% of breast malignancies will not be visualized mammographically. In the management of a palpable breast mass, a negative mammogram must not discourage biopsy of a clinically suspicious lesion. Electronically Signed By: Nura angel/hal:09/13/2021 09:42:27 letter sent: Normal Exam ACR BI-RADS Category 1: Negative 3341F
== END ==
PROVIDERS: Family Provider Family Medicine; PCP Family Medicine; Referring Provider Family Medicine; Visit Provider Family Medicine
DX: Z12.31 Encounter for screening mammogram for malignant neoplasm of breast (principal); Z80.3 Family history of malignant neoplasm of breast
CPT/HCPCS: 77063; 77067

== ENCOUNTER → 2022-09-27 07:29 | Outpatient (CLI) | payer OTHER, SELFPAY ==
--- NOTE | 2022-09-27 | DI.MG.S_ITS ---
BILATERAL DIGITAL SCREENING MAMMOGRAM 3D/2D WITH CAD: 09/27/2022 CLINICAL: Routine screening. Family history of breast cancer. Comparison is made to exams dated: 09/12/2021 mammogram and 09/06/2020 mammogram - [facility]. There are scattered areas of fibroglandular density in both breasts (category b / 25%-50% glandular tissue). Current study was also evaluated with a Computer Aided Detection (CAD) system. No significant masses, calcifications, or other findings are seen in either breast. There has been no significant interval change. IMPRESSION: NEGATIVE There is no mammographic evidence of malignancy. A 1 year screening mammogram is recommended. Based on the Tyrer Cuzick model (a risk assessment model) the patient's lifetime risk is 10.2% and her 10 year risk is 1.7%. According to the ACR, ACS, and NCCN guidelines, an annual breast MRI exam along with mammogram is recommended if the patient's lifetime risk is 20% or greater. This exam was interpreted at Station ID: [id number]. NOTE: For mammograms, a report in lay terms will be sent to the patient. Approximately 15% of breast malignancies will not be visualized mammographically. In the management of a palpable breast mass, a negative mammogram must not discourage biopsy of a clinically suspicious lesion. Electronically Signed By: Jonatan Barajas M.D., jr/hal:09/27/2022 10:36:01 letter sent: Normal Exam ACR BI-RADS Category 1: Negative 3341F
== END ==
PROVIDERS: Family Provider Family Medicine; PCP Family Medicine; Referring Provider Family Medicine; Visit Provider Family Medicine
DX: Z12.31 Encounter for screening mammogram for malignant neoplasm of breast (principal); Z80.3 Family history of malignant neoplasm of breast
CPT/HCPCS: 77063; 77067

== ENCOUNTER → 2023-10-17 16:17 | Outpatient (CLI) | payer OTHER, SELFPAY ==
--- NOTE | 2023-10-17 16:19 | DI.MG.S_ITS ---
BILATERAL DIGITAL SCREENING MAMMOGRAM 3D/2D WITH CAD: 10/17/2023 CLINICAL: Routine screening. Family history of breast cancer. Comparison is made to exams dated: 09/27/2022 mammogram, 09/12/2021 mammogram, and 09/06/2020 mammogram - [facility]. There are scattered areas of fibroglandular density in both breasts (category b / 25%-50% glandular tissue). Current study was also evaluated with a Computer Aided Detection (CAD) system. No significant masses, calcifications, or other findings are seen in either breast. There has been no significant interval change. IMPRESSION: NEGATIVE There is no mammographic evidence of malignancy. A 1 year screening mammogram is recommended. Based on the Tyrer Cuzick model (a risk assessment model) the patient's lifetime risk is 10.2% and her 10 year risk is 1.8%. According to the ACR, ACS, and NCCN guidelines, an annual breast MRI exam along with mammogram is recommended if the patient's lifetime risk is 20% or greater. This exam was interpreted at Station ID: [id number]. NOTE: For mammograms, a report in lay terms will be sent to the patient. Approximately 15% of breast malignancies will not be visualized mammographically. In the management of a palpable breast mass, a negative mammogram must not discourage biopsy of a clinically suspicious lesion. Electronically Signed By: Fabio chavira/hal:10/17/2023 16:46:58 letter sent: Normal Exam ACR BI-RADS Category 1: Negative 3341F
== END ==
PROVIDERS: Family Provider Family Medicine; PCP Family Medicine; Referring Provider Physician Assistant; Visit Provider Physician Assistant
DX: Z12.31 Encounter for screening mammogram for malignant neoplasm of breast (principal); Z80.3 Family history of malignant neoplasm of breast
CPT/HCPCS: 77063; 77067

== ENCOUNTER → 2024-06-22 14:37 | Outpatient (CLI) | payer OTHER, SELFPAY | PROVIDERS: Family Provider Family Medicine; PCP Family Medicine; Visit Provider Physician Assistant | DX: J02.9 Acute pharyngitis, unspecified (principal) | CPT/HCPCS: 87070 ==

== ENCOUNTER → 2024-10-26 17:41 | Outpatient (CLI) | payer OTHER, SELFPAY ==
--- NOTE | 2024-10-26 17:42 | DI.MG.S_ITS ---
BILATERAL DIGITAL SCREENING MAMMOGRAM 3D/2D WITH CAD: 10/26/2024 CLINICAL: Routine screening. Family history of breast cancer. Comparison is made to exams dated: 10/17/2023 mammogram, 09/27/2022 mammogram, and 09/12/2021 mammogram - [facility]. There are scattered areas of fibroglandular density (category b / 25%-50% glandular tissue). Current study was also evaluated with a Computer Aided Detection (CAD) system. No significant masses, calcifications, or other findings are seen in either breast. There has been no significant interval change. IMPRESSION: NEGATIVE There is no mammographic evidence of malignancy. A 1 year screening mammogram is recommended. Based on the Tyrer Cuzick model (a risk assessment model) the patient's lifetime risk is 10.3% and her 10 year risk is 2.0%. According to the ACR, ACS, and NCCN guidelines, an annual breast MRI exam along with mammogram is recommended if the patient's lifetime risk is 20% or greater. This exam was interpreted at Station ID: [id number]. NOTE: For mammograms, a report in lay terms will be sent to the patient. Approximately 15% of breast malignancies will not be visualized mammographically. In the management of a palpable breast mass, a negative mammogram must not discourage biopsy of a clinically suspicious lesion. Electronically Signed By: Jalen arnold/hal:10/28/2024 14:49:13 letter sent: Normal Exam ACR BI-RADS Category 1: Negative
== END ==
LOC: MAMMO 17:42
PROVIDERS: Family Provider Family Medicine; PCP Family Medicine; Referring Provider Family Medicine; Visit Provider Family Medicine
DX: Z12.31 Encounter for screening mammogram for malignant neoplasm of breast (principal); Z80.3 Family history of malignant neoplasm of breast
CPT/HCPCS: 77063; 77067

== ENCOUNTER → 2025-04-03 09:36 | Outpatient (CLI) | payer OTHER, SELFPAY ==
[2025-04-03 10:24] LABS: Influenza A - CEPHEID Flu A NEGATIVE (NEGATIVE); Influenza B - CEPHEID Flu B NEGATIVE (NEGATIVE); Respiratory Syncytial Virus Negative (Negative)
[2025-04-03 10:25] LABS: COVID-19 CEPHEID 4-PLEX PCR Negative (Negative)
== END ==
PROVIDERS: PCP Family Medicine; Visit Provider Nurse Practitioner Family
DX: J02.9 Acute pharyngitis, unspecified (principal); R09.81 Nasal congestion
CPT/HCPCS: 0241U; 87070

== ENCOUNTER → 2025-09-02 14:35 | Outpatient (CLI) | payer OTHER, SELFPAY ==
--- NOTE | 2025-09-02 14:38 | DI.RAD.S_ITS ---
PROCEDURE: XR CHEST 2V INDICATIONS: COUGH TECHNIQUE: 2 views of the chest were acquired. COMPARISON: None. FINDINGS: Surgical changes and devices: None. Lungs and pleura: Lungs are clear. No pleural effusions or pneumothorax. Mediastinum: Mediastinal contours are normal. Heart size is normal. Bones and chest wall: No suspicious bony abnormalities. Soft tissues appear unremarkable. IMPRESSION: No acute pulmonary process. Dictated by: Jess Lawson M.D. on 09/04/2025 at 12:23 Approved by: Jess Lawson M.D. on 09/04/2025 at 12:23
== END ==
PROVIDERS: PCP Family Medicine; Referring Provider Family Medicine; Visit Provider Family Medicine
DX: R05.9 Cough, unspecified (principal)
CPT/HCPCS: 71046